=== PATIENT | female | born 1965 | race Caucasian/White ===

== ENCOUNTER → 2018-01-31 | Outpatient (CLI) | payer OTHER | END | disposition home or self-care (01) | LOC: C.LAB 13:31 | PROVIDERS: ATTEND Internal Medicine | DX: R82.90 Unspecified abnormal findings in urine (principal) ==

== ENCOUNTER → 2018-02-17 | Outpatient (CLI) | payer OTHER | END | disposition home or self-care (01) | LOC: C.LAB 11:34 | PROVIDERS: ATTEND Internal Medicine | DX: N39.0 Urinary tract infection, site not specified (principal) ==

== ENCOUNTER 2020-01-16 10:41 | Inpatient (IN) ==
[2020-01-16] MEDS ORDERED: cefTRIAXone SODIUM 1,000 MG/50 ML BAG IV STA (12:04)
[2020-01-16] MEDS ORDERED: SODIUM CHLORIDE 0.9% 1000ML 1,000 ML IV ONE (12:04)
[2020-01-16] MEDS ORDERED: ONDANSETRON INJ 2 MG/ML 2 ML VIAL IV STA (12:04)
[2020-01-16] MEDS ORDERED: MoRPHine SULFATE 4 MG/ML 1 ML CARP\\VIAL IV STA ×2 (12:04→13:46)
[2020-01-16 12:35] LABS: Basophils # (auto) 0.03 K/uL (0-0.2); Basophils % (auto) 0.4 %; Eosinophils # (auto) 0.04 K/uL (0-0.5); Eosinophils % (auto) 0.5 %; Hematocrit (blood only) 40.1 % (37-47); Hemoglobin 13.8 g/dL (12.0-16.0); Immature Granulocytes # (auto) 0.02 K/uL (0.00-0.02); Immature Granulocytes % (auto) 0.2 %; Lymphocytes # (auto) 0.99 K/uL (1.2-3.4); Lymphocytes % (auto) 11.6 %; Mean Corpuscular Hemoglobin 32.4 pg (25-34); Mean Corpuscular Hgb Conc 34.4 g/dL (32-36); Mean Corpuscular Volume 94.1 fL (80-100); Mean Platelet Volume 9.6 fL (7.4-10.4); Monocytes # (auto) 0.54 K/uL (0.11-0.59); Monocytes % (auto) 6.3 %; Neutrophils # (auto) 6.95 K/uL (1.4-6.5); Platelet Count 201 K/uL (130-400); RDW Coefficient of Variation 12.5 % (11.5-14.5); RDW Standard Deviation 42.7 fL (36.4-46.3); Red Blood Count 4.26 M/uL (4.2-5.4); White Blood Count 8.57 K/uL (4.8-10.8)
[2020-01-16 12:41] LABS: Color Urine Orange
[2020-01-16 12:42] LABS: Appearance Urine Clear (Clear); Sulfosalicylic Acid Urine Negative (Negative)
[2020-01-16 12:53] LABS: RBC Urine >30 /hpf (0-4)
[2020-01-16 12:54] LABS: BUN Creatinine Ratio 13.7 (10-20); Bacteria Urine 1+ (Negative); Creatinine Clr Calc Pharmacy 54.7 ml/min; Est GFR (African American) 68.8; Est GFR (Non-African American) 59.3; Potassium 3.9 mmol/L (3.5-5.1)
[2020-01-16 12:57] LABS: Albumin Globulin Ratio 1.2 (0.9-2); Bilirubin,Total 0.5 mg/dl (0.2-1); Globulin 3.3 gm/dl (2.5-4.0); Total Protein 7.3 gm/dl (6.4-8.2)
--- NOTE | 2020-01-16 12:57 | CT Scan Report ---
CT abd pelvis wo con CLINICAL HISTORY: 54 years-old Female presenting with LLQ pain, flank pain. TECHNIQUE: Multidetector CT of the abdomen and pelvis was performed without the use of intravenous co ntrast. IV contrast: None. One or more dose lowering techniques were used consistent with the princip les of ALARA (as low as reasonably achievable), including automatic exposure control, mA or kV adjust ment to individual patient size, and/or use of iterative reconstruction. COMPARISON: None. CT DOSE (mGy.cm): The estimated cumulative dose is 274.92 mGy.cm. FINDINGS: Patient Service Coordinator topogram: Cholecystectomy clips. Lung bases: Normal heart size. No pericardial or pleural effusion. No focal infiltrate or nodule at t he lung bases. Liver: Normal morphology. Normal density. Biliary: No gross biliary ductal dilatation allowing for noncontrast technique. Gallbladder surgicall y absent. Pancreas: Normal noncontrast appearance. Spleen: Normal noncontrast appearance. Adrenal glands: Normal noncontrast appearance. Kidneys and ureters: Moderate left perinephric fat infiltration asymmetric to the right. Mild left pe lvocaliectasis also asymmetric to the right. Left ureter mildly distended. The distal left ureter is poorly visualized. There is an oblong calculus in the general region of the course of the distal left ureter measuring 4 mm. This is suspicious for an obstructing distal left ureteral calculus immediate ly proximal to the left ureterovesical junction. No additional renal or ureteral calculus. Bladder: Incompletely evaluated secondary to underdistention. No bladder calculus. Pelvic organs: Normal noncontrast appearance. Bowel: Fatty atrophy of the appendix. No bowel obstruction. Peritoneal cavity: No free fluid or intraperitoneal gas. Lymph nodes: No gross lymphadenopathy allowing for noncontrast technique. Vasculature: Normal noncontrast appearance. Abdominal wall: Normal. Musculoskeletal: Normal. IMPRESSION: 1. Suspected obstructing 4 mm distal left ureteral calculus immediately proximal to the left UVJ. Ev aluation limited by poor visualization of the distal left ureter. Follow-up is advised. 2. Associated mild left hydroureteronephrosis. Given the ambiguity of the distal left ureteral calcu marlene finding, recommend correlate with urinalysis to exclude infection as a cause for left collecting system dilatation in the appearance of the left kidney. 3. Status post cholecystectomy. ACT 112: Negative or not required by law. Electronically signed by: Aric Phillips M.D. 01/16/2020 12:56 PM
--- NOTE | 2020-01-16 13:36 | Emergency Department Note ---
History of Present Illness General Chief Complaint: Abdominal Pain Stated Complaint: LT ABD PAIN,NAUSEA/VOMITING Source: patient Mode of arrival: ambulatory Limitations: no limitations History of Present Illness Provider Complaint: abdominal pain and flank pain Onset (ago): 1 day(s) Pain Consistency: constant Location: LLQ Radiation: L flank Migration to: no migration Severity: moderate Maximum Pain Intensity: 6 Current Pain Intensity: 6 Quality: + sharp Relieved By: + nothing Exacerbated By: + movement Context: + recent antibiotic use Associated Symptoms: + nausea and + chills This 54-year-old female patient with significant past medical history of chronic urinary tract infections, currently followed by urology and [facility] presents to the emergency department today, ambulatory, complaining of left lower quadrant pain. The patient states she was diagnosed over the phone based on dysuria and urinary frequency with a UTI and started on Macrobid on 12/26. She states her symptoms somewhat improved, but worsened again and on 01/12, she was started on cefadroxil. She states she did have a urinalysis and culture performed here at [facility], but she was not given clear results. She states the cefadroxil seem to be helping somewhat, but this morning, she developed severe left lower quadrant tenderness radiating across her abdomen and up to her left flank. The patient did see [facility] today and had a urinalysis performed. She was told she likely has pyelonephritis and sent to the ED for further evaluation. The patient has reported subjective fevers. She does report nausea and one episode of vomiting when trying to take the Pyridium. She states the dysuria, urinary frequency, and pain have been progressively worsening today. Patient denies any chest pain, dyspnea, headache, dizziness, numbness, tingling, weakness, or other associated symptoms. Home Medications Home Medications Medication Instructions Recorded Confirmed Type aspirin 81 mg PO DAILY 01/16/20 01/16/20 History biotin 1 mg PO DAILY 01/16/20 01/16/20 History cefadroxil 500 mg PO BID 01/16/20 01/16/20 History cholecalciferol (vitamin D3) 1,000 unit PO DAILY 01/16/20 01/16/20 History [Vitamin D3] denosumab [Prolia] 60 mg SUBCUT Q6M 01/16/20 01/16/20 History hydroxychloroquine 200 mg PO DAILY 01/16/20 01/16/20 History letrozole 2.5 mg PO DAILY 01/16/20 01/16/20 History temazepam 15 mg PO HS 01/16/20 01/16/20 History Allergies Allergy/AdvReac Type Severity Reaction Status Date / Time codeine Allergy Hives Unverified 01/16/20 11:27 Sulfa (Sulfonamide AdvReac Headache Unverified 01/16/20 11:27 Antibiotics) Past Med/Surg History Medical History Breast cancer Chronic UTI Lymphedema of right upper extremity Stress fracture of left foot Social History Preferred Language: Swazi Communication Ability: Effective Shingle Weaver Required: No Beliefs That Will Affect Care: None Current Living Situation: Spouse Feels Safe at Home: Yes Smoking Status: Never smoker Second Hand Exposure: No ; Hx Alcohol Use: Yes Alcohol type: other Hx Substance Use: No Review of Systems A total of 10 systems reviewed and were otherwise negative Physical Exam Vital Signs: Vital Signs - 24 hr 01/16/20 11:00 01/16/20 12:19 01/16/20 12:20 Temperature 36.5 C Temperature Source Oral Pulse Rate 67 68 Pulse Rate [Left F nick] 68 Pulse Rate from Sp O2 Sensor 69 Respiratory Rate 18 18 Respiratory Effort / Characteristics Non-Labored Sponta neous Respiratory Depth Normal Normal Blood Pressure 133/85 129/74 Blood Pressure [Le ft Arm] 129/74 Blood Pressure Jodee n 101 85 Blood Pressure Jodee n [Left Arm] 92 Blood Pressure Pos ition Sitting Pulse Oximetry 99 99 97 Oxygen Delivery Me thod Room Air Room Air Room Air Sepsis Recent Feve r Within 48 Hours No Sepsis Action Take n by Nursing No Action Required 01/16/20 13:14 01/16/20 13:15 01/16/20 13:30 Temperature Temperature Source Pulse Rate 66 64 87 Pulse Rate [Left F nick] 66 Pulse Rate from Sp O2 Sensor 67 65 88 Respiratory Rate 22 20 17 Respiratory Effort / Characteristics Non-Labored Sponta neous Respiratory Depth Normal Blood Pressure 111/68 Blood Pressure [Le ft Arm] 111/68 Blood Pressure Jodee n 85 Blood Pressure Jodee n [Left Arm] 82 Blood Pressure Pos ition Pulse Oximetry 99 99 100 Oxygen Delivery Me thod Room Air Sepsis Recent Feve r Within 48 Hours Sepsis Action Take n by Nursing 01/16/20 13:31 01/16/20 14:00 01/16/20 14:01 Temperature Temperature Source Pulse Rate 78 70 68 Pulse Rate [Left F nick] Pulse Rate from Sp O2 Sensor 76 70 68 Respiratory Rate 18 16 17 Respiratory Effort / Characteristics Respiratory Depth Blood Pressure 143/76 H 110/67 Blood Pressure [Le ft Arm] Blood Pressure Jodee n 102 79 Blood Pressure Jodee n [Left Arm] Blood Pressure Pos ition Pulse Oximetry 99 97 97 Oxygen Delivery Me thod Sepsis Recent Feve r Within 48 Hours Sepsis Action Take n by Nursing Physical Exam: VITALS: Vitals are noted on the nurse's note and reviewed by myself. Vital signs stable. GENERAL: This is a 54-year-old white female, in no acute distress, nondiaphoretic, well-developed well-nourished. SKIN: The skin was without rashes, erythema, edema, or bruising. There is no tenting of the skin. Capillary refill less than 2 seconds. HEAD: Normocephalic atraumatic. NECK: Supple without nuchal rigidity. No lymphadenopathy. HEART: Regular rate and rhythm without murmurs gallops or rubs. LUNGS: Clear to auscultation bilaterally without wheezes, rales or rhonchi. No retractions or accessory muscle use. ABDOMEN: Positive bowel sounds x 4. Normal tympanic percussion. Left lower quadrant tenderness to palpation. There is left CVA tenderness. Abdomen is otherwise soft, nontender, without masses or organomegaly. Rucker sign negative. No guarding or rebound tenderness. MUSCULOSKELETAL: No muscle atrophy, erythema, or edema noted. Full range of motion without joint tenderness in all extremities. No tenderness to palpation. Normal gait. Strength 5/5 throughout. NEURO: Patient was alert and oriented to person place and time. No focal neurological deficits. Course Course The patient was seen and evaluated as above. Pt. placed on continuous color television console monitor which showed a normal sinus rhythm at a rate of 73. IV access obtained, labs drawn. Patient medicated with IV fluids, Rocephin, Zofran, and morphine. Imaging performed and reviewed by myself and radiologist as above. Labs reviewed by myself. I discussed the findings with the patient at bedside. I discussed the case with Dr. Bueno. I discussed the case with the respiratory manager. I discussed case with Dr. Hector, [facility] hospitalist. Please see her dictation regarding ongoing management care of this patient. Consultations Consultation #1: Dr. Bueno: Recommends making the patient n.p.o., starting Rocephin, and admit to the hospitalist service. He advised that if the patient develops a fever of greater than 100 F, he should be contacted immediately to emergently place a stent. The patient will otherwise have a stent placed tonight or tomorrow morning. Time: 13:35 Administered Medications Discontinued Medications Sodium Chloride (Nss 1000ml) 1,000 mls @ 999 mls/hr IV .Q1H1M ONE Stop: 01/16/20 13:04 Last Infusion: 01/16/20 13:49 Dose: 0 mls/hr Documented by: [id number] Admin: 01/16/20 12:31 Dose: 999 mls/hr Documented by: [id number] Ceftriaxone Sodium (Rocephin) 1,000 mg in 50 mls @ 100 mls/hr IV NOW STA Stop: 01/16/20 12:33 Last Infusion: 01/16/20 13:02 Dose: 0 mls/hr Documented by: [id number] Admin: 01/16/20 12:32 Dose: 100 mls/hr Documented by: [id number] Morphine Sulfate (Morphine Sulfate) 4 mg IV NOW STA Stop: 01/16/20 12:05 Last Admin: 01/16/20 12:31 Dose: 4 mg Documented by: [id number] Morphine Sulfate (Morphine Sulfate) 4 mg IV NOW STA Stop: 01/16/20 13:47 Last Admin: 01/16/20 13:53 Dose: 4 mg Documented by: [id number] Ondansetron HCl (Zofran) 4 mg IV NOW STA Stop: 01/16/20 12:05 Last Admin: 01/16/20 12:32 Dose: 4 mg Documented by: [id number] Medical Decision Making Differential Diagnosis + peptic ulcer disease, + biliary pathology, + UTI, + obstruction, + mesenteric ischemia, + aortic pathology, + infections, + inflammatory bowel disease, + renal colic, + ectopic (female), + ovarian torsion (female), + tubo- ovarian abscesses (female), + pelvic inflammatory disease (female), + abdominal pain, + appendicitis, + calculus of kidney, + constipation, + diverticulitis, + endometriosis, + gastroenteritis, + pancreatitis and + small bowel obstruction Home Medications Current Medication List: was personally reviewed by me Laboratory Data Attestation: I reviewed the patient's lab results. No leukocytosis, anemia, thrombocytopenia. Renal, hepatic function, and electrolytes without significant abnormality. Urinalysis difficult to interpret due to discoloration, however shows greater than 30 red blood cells, 5-10 white blood cells, 10-20 epithelial cells, 1+ bacteria. Lipase normal. Result diagrams: 01/16/20 12:25 01/16/20 12:25 Lab Results 01/16/20 01/16/20 01/16/20 Range/Units 12:25 12:25 12:25 WBC 8.57 (4.8-10.8) K/uL RBC 4.26 (4.2-5.4) M/uL Hgb 13.8 (12.0-16.0) g/dL Hct 40.1 (37-47) % MCV 94.1 (80-100) fL MCH 32.4 (25-34) pg MCHC 34.4 (32-36) g/dL RDW Std Deviation 42.7 (36.4-46.3) fL RDW Coeff of Jesús 12.5 (11.5-14.5) % Plt Count 201 (130-400) K/uL MPV 9.6 (7.4-10.4) fL Immature Gran % (Auto) 0.2 % Neut % (Auto) 81.0 % Lymph % (Auto) 11.6 % [place] % (Auto) 6.3 % Eos % (Auto) 0.5 % Baso % (Auto) 0.4 % Immature Gran # (Auto) 0.02 (0.00-0.02) K/uL Neut # (Auto) 6.95 H (1.4-6.5) K/uL Lymph # (Auto) 0.99 L (1.2-3.4) K/uL [place] # (Auto) 0.54 (0.11-0.59) K/uL Eos # (Auto) 0.04 (0-0.5) K/uL Baso # (Auto) 0.03 (0-0.2) K/uL Sodium 138 (136-145) mmol/L Potassium 3.9 (3.5-5.1) mmol/L Chloride 108 H (98-107) mmol/L Carbon Dioxide 25 (21-32) mmol/L Anion Gap 5.0 (3-11) BUN 14 (7-18) mg/dl Creatinine 1.05 (0.6-1.2) mg/dl Est Cr Clr Drug Dosing 54.7 ml/min Est GFR ( Amer) 68.8 Est GFR (Non-Af Amer) 59.3 BUN/Creatinine Ratio 13.7 (10-20) Glucose 97 (70-99) mg/dl Calcium 9.0 (8.5-10.1) mg/dl Total Bilirubin 0.5 (0.2-1) mg/dl AST 17 (15-37) U/L ALT 20 (12-78) U/L Alkaline Phosphatase 52 (45-117) U/L Total Protein 7.3 (6.4-8.2) gm/dl Albumin 4.0 (3.4-5.0) gm/dl Globulin 3.3 (2.5-4.0) gm/dl Albumin/Globulin Ratio 1.2 (0.9-2) Lipase 172 (73-393) U/L Urine Color [place] Urine Appearance Clear (Clear) Urine pH (4.5-7.5) Ur Specific [place] 1.020 (1.000-1.060) Urine Protein (Negative) Urine Glucose (UA) (Negative) Urine Ketones (Negative) Urine Blood (Negative) Urine Nitrite (Negative) Urine Bilirubin (Negative) Urine Urobilinogen (Negative) Ur Leukocyte Esterase (Negative) Urine RBC >30 H (0-4) /hpf Urine WBC 5-10 H (0-5) /hpf Ur Epithelial Cells 10-20 H (0-5) /lpf Urine Bacteria 1+ H (Negative) Imaging Data Radiologist's Impression: CT abd pelvis wo con CLINICAL HISTORY: 54 years-old Female presenting with LLQ pain, flank pain. TECHNIQUE: Multidetector CT of the abdomen and pelvis was performed without the use of intravenous contrast. IV contrast: None. One or more dose lowering techniques were used consistent with the principles of ALARA (as low as reasonably achievable), including automatic exposure control, mA or kV adjustment to individual patient size, and/or use of iterative reconstruction. COMPARISON: None. CT DOSE (mGy.cm): The estimated cumulative dose is 274.92 mGy.cm. FINDINGS: Coating Machine Operator Helper topogram: Cholecystectomy clips. Lung bases: Normal heart size. No pericardial or pleural effusion. No focal infiltrate or nodule at the lung bases. Liver: Normal morphology. Normal density. Biliary: No gross biliary ductal dilatation allowing for noncontrast technique. Gallbladder surgically absent. Pancreas: Normal noncontrast appearance. Spleen: Normal noncontrast appearance. Adrenal glands: Normal noncontrast appearance. Kidneys and ureters: Moderate left perinephric fat infiltration asymmetric to the right. Mild left pelvocaliectasis also asymmetric to the right. Left ureter mildly distended. The distal left ureter is poorly visualized. There is an oblong calculus in the general region of the course of the distal left ureter measuring 4 mm. This is suspicious for an obstructing distal left ureteral calculus immediately proximal to the left ureterovesical junction. No additional renal or ureteral calculus. Bladder: Incompletely evaluated secondary to underdistention. No bladder calculus. Pelvic organs: Normal noncontrast appearance. Bowel: Fatty atrophy of the appendix. No bowel obstruction. Peritoneal cavity: No free fluid or intraperitoneal gas. Lymph nodes: No gross lymphadenopathy allowing for noncontrast technique. Vasculature: Normal noncontrast appearance. Abdominal wall: Normal. Musculoskeletal: Normal. IMPRESSION: 1. Suspected obstructing 4 mm distal left ureteral calculus immediately proximal to the left UVJ. Evaluation limited by poor visualization of the distal left ureter. Follow-up is advised. 2. Associated mild left hydroureteronephrosis. Given the ambiguity of the distal left ureteral calculus finding, recommend correlate with urinalysis to exclude infection as a cause for left collecting system dilatation in the appearance of the left kidney. 3. Status post cholecystectomy. ACT 112: Negative or not required by law. Electronically signed by: Aric Phillips M.D. 01/16/2020 12:56 PM Blood Pressure Blood Pressure Findings: Normal blood pressure MDM Narrative This 54-year-old female patient presents emergency department today due to sudden onset of left lower quadrant abdominal pain radiating to the flank in the setting of urinary tract infection. The patient has now been on 2 different antibiotics. She is afebrile with no leukocytosis, however does report subjective chills and increased pain, dysuria, and urinary frequency. Work-up here in the ED does show a white blood cells and red blood cells as well as bacteria in the urine. There is a left hydroureteronephrosis, distal left ureteral calculus, as well as left collecting system dilatation noted on CT imaging. Given the findings and symptoms, I am suspicious for a pyelonephritis in the setting of a ureteral stone. I recommend admission with urology consult for further evaluation and management. The patient was medicated with IV antibiotics and will remain n.p.o. until she is seen and evaluated by urology. The chart was completed utilizing [employer] Speech voice recognition software. Grammatical errors, random word insertions, pronoun errors, and incomplete sentences are an occasional consequence of this system due to software limitations, ambient noise, and hardware issues. Any formal questions or concerns about the content, text, or information contained within the body of this dictation should be directly addressed to the provider for clarification. Impression & Plan Nephrolithiasis, Pyelonephritis, Abdominal pain Discharge Plan Visit Data *Final* Discharge Date/Time: 01/16/20 15:23 Chief Complaint: Abdominal Pain Stated Complaint: LT ABD PAIN,NAUSEA/VOMITING ED Provider: Aashish Rainey ED Midlevel Provider: Peggy Muñoz Discharge Problem: Nephrolithiasis, Pyelonephritis, Abdominal pain Patient Disposition: Admitted As Inpatient Condition: Good Discharge Instructions Interventions: ED Discharge Assessment Last Done: 01/16/20 15:23
--- NOTE | 2020-01-16 14:03 | History & Physical Report ---
Date of Service January 16, 2020 Assessment & Plan (1) Nephrolithiasis: Admits to [facility] on telemetry, Vital signs every 4 hours, Consult urology, Call urology if patient spikes fever above 100.4 F Keep n.p.o. DVT prophylaxis SCD and teds Continue IV fluid hydration Full code Present on Admission?: Yes (2) Pyelonephritis: As discussed above, Urine culture, blood culture pending, Started on ceftriaxone in the ER and continue empirically ceftriaxone 2 g IV daily. Pain management Antinausea management Present on Admission?: Yes (3) History of breast cancer: Stable now. Patient had a lumpectomy at [facility] in 2014 Patient completed chemo and radiation therapy in 2016 Patient is in remission from a left breast cancer. Present on Admission?: Yes History of Present Illness Chief Complaint: Left flank pain Primary Care Provider: Lincoln Neely The patient is a 54 years old female with past medical history of right breast carcinoma s/p lumpectomy, chemo and radiation therapy, lupus on hydrochloroquine who presents to the emergency room with a complaint of left flank pain. Patient states that on December 26 she contacted her doctor urologist from [place] for dysuria and urinary frequency over the phone and she was diagnosed UTI. Patient was started on Macrobid and initially her symptoms improved but then started to worsen again on January 12. At that point patient was started on cefadroxil. Initially cefadroxil was helping somewhat but then the symptoms were worsening and she developed severe left lower quadrant tenderness radiating across her abdomen after her left flank. Patient went to urgent care where she had urine analysis and she was told that she has pyelonephritis and she was sent to the emergency room for further evaluation and treatment. Patient reports subjective fevers but did not measure, denies headache, chest pain, shortness of breath, hemoptysis, hematuria, dysuria, melena, syncope or near syncope. Labs are reviewed which shows WBCs 8.57, hemoglobin 13.8, hematocrit 40.1, platelets 201, sodium 138, potassium 3.9, chloride 108, carbon dioxide 25, anion gap 5, BUN 14, creatinine 1.05, GFR 59.3, BUN 13.7, calcium 9, total bilirubin 0.5, AST 17, ALT 20, alkaline phosphatase 52, total protein 7.3, albumin 4, globulin 3.3, lipase 172, urine positive for RBCs, WBCs 5-10, epithelial cells 10-20, and urine bacteria 1+. The abdomen and pelvis: Suspected obstructing 4 mm distal left ureteral calculus immediately proximal to the left UV J. Evaluation limited by poor visualization of the left ureter. Associated with mild left hydro- ureteronephrosis. Given the ambiguity of the distal left ureteral calculus finding recommended correlate with urine analysis to exclude infection as a cause for the left collecting system dilatation in the parents of the left kidney. Status post cholecystectomy. Decision was made to admit patient to [facility] on telemetry for pyelonephritis and nephrolithiasis. Allergies Allergy/AdvReac Type Severity Reaction Status Date / Time codeine Allergy Hives Unverified 01/16/20 11:27 Sulfa (Sulfonamide AdvReac Headache Unverified 01/16/20 11:27 Antibiotics) Home Medications Home Medications Medication Instructions Recorded Confirmed Type aspirin 81 mg PO DAILY 01/16/20 01/16/20 History biotin 1 mg PO DAILY 01/16/20 01/16/20 History cefadroxil 500 mg PO BID 01/16/20 01/16/20 History cholecalciferol (vitamin D3) 1,000 unit PO DAILY 01/16/20 01/16/20 History [Vitamin D3] denosumab [Prolia] 60 mg SUBCUT Q6M 01/16/20 01/16/20 History hydroxychloroquine 200 mg PO DAILY 01/16/20 01/16/20 History letrozole 2.5 mg PO DAILY 01/16/20 01/16/20 History temazepam 15 mg PO HS 01/16/20 01/16/20 History Past Med/Surg History Medical History Breast cancer Chronic UTI Lymphedema of right upper extremity Stress fracture of left foot Social History Preferred Language: [place] Timorese Communication Ability: Effective Garment Manufacturer Required: No Beliefs That Will Affect Care: None Current Living Situation: Spouse Other Information That Helps Us Care for You: No Feels Safe at Home: Yes Safety Concerns: Feels Safe At This Time Smoking Status: Never smoker Do You Dip or Chew Tobacco: No ; Second Hand Exposure: No ; Tobacco Cessation Education Requested by Patient: No Hx Alcohol Use: Yes Alcohol type: other Hx Substance Use: No Review of Systems Review of Systems: All systems reviewed & are unremarkable except as noted in HPI & below Physical Exam Constitutional: WD/WN, vitals as above well developed and + ill appearing Eyes: PERRL, conjunctivae normal, anicteric sclerae ENMT: external ear and nose normal, oropharynx normal Neck: trachea midline, no thyromegaly Respiratory: normal respiratory effort, lungs clear to auscultation Cardiovascular: RRR, no murmur, no edema Gastrointestinal (Abdomen): normal bowel sounds, soft, nontender, no hepatosplenomegaly Musculoskeletal: no cyanosis or clubbing, extremities motor strength 5/5 Skin: no rashes, warm and dry Neurologic: patellar DTR's 2+ bilat, sensation intact Psychiatric: A+Ox3, euthymic affect Lymphatic: no cervical or axillary lymphadenopathy Results & Data Vital Signs (Past 12 Hours) Vital Signs Temp Pulse Pulse Resp BP BP Pulse Ox 01/16/20 13:15 66 18 111/68 99 01/16/20 12:20 97 01/16/20 12:19 68 18 129/74 99 01/16/20 11:00 36.5 C 67 18 133/85 99 Code Status & VTE Plan Code Status Full code VTE Prophylaxis Plan VTE Prophylaxis will be ordered: Yes PG Care Time/CCT Total # of Minutes Spent Total Time Spent with Patient: Total time spent is greater than 50% in coordination of care (as documented) at patient's floor/unit and/or counseling patient: Coding Level of Care Code 05256 Initial Inpt Care Lvl 3 Diagnoses Nephrolithiasis N20.0 Pyelonephritis N12 History of breast cancer Z85.3
[2020-01-16] MEDS ORDERED: MAGNESIUM HYDROXIDE SUSP 30 ML UDC PO PRN (15:40)
[2020-01-16] MEDS ORDERED: ONDANSETRON INJ 2 MG/ML 2 ML VIAL IV PRN (15:40)
[2020-01-16] MEDS ORDERED: MoRPHine SULFATE 4 MG/ML 1 ML CARP\\VIAL IV PRN (15:40)
[2020-01-16] MEDS ORDERED: ALUMINUM/MAGNESIUM SUSP 30 ML UDC PO PRN (15:40)
[2020-01-16] MEDS ORDERED: ACETAMINOPHEN 325 MG TAB PO PRN (15:40)
[2020-01-16] MEDS ORDERED: POLYETHYLENE (MIRALAX) 17 GM PACK PO PRN (15:40)
[2020-01-16] MEDS: NSS + 20MEQ KCL 20 MEQ/1,000 ML BAG IV SCH (16:22)
[2020-01-16] MEDS: TEMAZEPAM 15 MG CAPSULE PO SCH (21:17)
--- NOTE | 2020-01-17 04:27 | Consultation Report ---
DATE OF CONSULTATION: 01/16/2020 REASON FOR THE CONSULT: Left-sided abdominal pain and kidney stone. HISTORY OF PRESENTATION: The patient is a 54-year-old female who has a past medical history of chronic urinary tract infections who had been seen by urology in [place] in the past several years ago who presents to the Emergency Department in [place] today with severe left lower quadrant pain. The patient had been having some left lower quadrant irritation and symptoms of urgency and as if she had a bladder infection for the past several weeks. It was accompanied with a low grade left lower quadrant pain to some extent, but she was treated once with Macrobid without a culture, the second time with a culture which is not clear that grew anything out, but 3 different organisms and felt that she had urinary tract infection. She was treated with a second time with cefadroxil. The patient awoke today with severe left-sided pain, came to the Emergency Room and had a CAT scan which shows what appears to be a left distal ureteral stone. The radiologist is not 100% certain, but it certainly is consistent with the stone and her symptoms are also consistent with the stone. PAST MEDICAL HISTORY: Significant for history of breast cancer with lumpectomy and node dissection. She has a history of cholecystectomy. ALLERGIES: SHE HAS AN ALLERGY TO SULFA AND CODEINE. MEDICATIONS: Include aspirin, biotin, vitamin D3, Prolia 60 mg subcutaneous every 6 months, hydroxychloroquine, Plaquenil 200 mg daily, temazepam 15 mg at bedtime and letrozole 2.5 mg p.o. daily. She also has a past medical history of lupus for over 20 years REVIEW OF SYSTEMS: Total 10 systems were reviewed and were otherwise negative. SOCIAL HISTORY: The patient drinks, but rarely. She never smoked. Denies substance abuse. PHYSICAL EXAMINATION: HEENT: Within normal limits. LUNGS: Clear to auscultation. No respiratory distress. NECK: Supple without rigidity. HEART: Without pedal edema. ABDOMEN: Soft, except for some tenderness in the left lower quadrant and some left CVA tenderness to percussion. EXTREMITIES: Unremarkable without abnormality or weakness. NEUROLOGIC: The patient is alert and oriented without focal or sensory deficit. ASSESSMENT: Symptoms of left ureteral calculus for several weeks with increasing severity today. Discussed the option of left ureteroscopy if the pain persists overnight and discussed the risks including inability to remove the stone, damage to the ureter including pushing the stone into the bladder wall, need for reoperation or repeat operation. Also, discussed the options which include passage or ESWL if the stone can be seen. The patient understands the options and the risks and benefits and wishes to proceed with ureteroscopy in the morning if the pain persists.
[2020-01-17] MEDS: NSS + 20MEQ KCL 20 MEQ/1,000 ML BAG IV SCH (05:30)
[2020-01-17 06:51] LABS: Basophils # (auto) 0.05 K/uL (0-0.2); Basophils % (auto) 0.9 %; Eosinophils # (auto) 0.12 K/uL (0-0.5); Eosinophils % (auto) 2.1 %; Hematocrit (blood only) 36.6 % (37-47); Hemoglobin 12.2 g/dL (12.0-16.0); Immature Granulocytes # (auto) 0.01 K/uL (0.00-0.02); Immature Granulocytes % (auto) 0.2 %; Lymphocytes # (auto) 1.42 K/uL (1.2-3.4); Mean Corpuscular Hemoglobin 31.8 pg (25-34); Mean Corpuscular Hgb Conc 33.3 g/dL (32-36); Mean Corpuscular Volume 95.3 fL (80-100); Mean Platelet Volume 9.6 fL (7.4-10.4); Monocytes # (auto) 0.56 K/uL (0.11-0.59); Monocytes % (auto) 9.8 %; Neutrophils # (auto) 3.53 K/uL (1.4-6.5); Platelet Count 175 K/uL (130-400); RDW Coefficient of Variation 12.7 % (11.5-14.5); RDW Standard Deviation 44.5 fL (36.4-46.3); Red Blood Count 3.84 M/uL (4.2-5.4); White Blood Count 5.69 K/uL (4.8-10.8)
[2020-01-17 07:29] LABS: BUN Creatinine Ratio 13.4 (10-20); Creatinine Clr Calc Pharmacy 75.5 ml/min; Est GFR (African American) 101.6; Est GFR (Non-African American) 87.7; Potassium 4.1 mmol/L (3.5-5.1)
[2020-01-17 07:33] LABS: Bilirubin,Total 0.3 mg/dl (0.2-1); Globulin 2.9 gm/dl (2.5-4.0); Total Protein 5.9 gm/dl (6.4-8.2)
[2020-01-17] MEDS ORDERED: NON-FORMULARY MEDICATION (Biotin 1 MG) PO SCH (09:00)
--- NOTE | 2020-01-17 09:05 | XRay Report ---
[facility] HISTORY: ureteral stone COMPARISON: Abdomen and pelvis CT 01/16/2020. FINDINGS: The bowel gas pattern is unremarkable. There are no dilated loops of small bowel to suggest an obstruction. Prior cholecystectomy. No renal calculi. There are few indeterminate punctate calci fications within the pelvis. These favor phleboliths. However, one of the left pelvic calcifications could represent a ureteral stone. These remain unchanged. No pneumoperitoneum or pneumatosis. IMPRESSION: There are few indeterminate punctate calcifications within the lower pelvis. These favor phleboliths. However, one of the left pelvic calcifications could represent a ureteral stone. These remain unchan ged. ACT 112: Negative or not required by law. Electronically signed by: Danny Jack M.D. 01/17/2020 9:03 AM
[2020-01-17] MEDS ORDERED: OPTIRAY 300 IV PRN (10:53)
--- NOTE | 2020-01-17 11:58 | Anesthesiology Consultation ---
Date of Service January 17, 2020 Assessment & Plan Chart Review Chart Review: Acceptable Risk for Surgery and Patient NOT seen in Pre Admission Testing Consults Requested none ASA [id number] Proposed Anesthesia Anesthesia Type: General History Surgery Operation Date: 01/17/20 13:00 Proposed Procedures p Cystoscopy(Left) - Oli Bueno MD Height/Weight Height: 5 ft 3 in Weight: 66.1 kg Allergies Allergy/AdvReac Type Severity Reaction Status Date / Time codeine Allergy Hives Unverified 01/16/20 11:27 Sulfa (Sulfonamide AdvReac Headache Unverified 01/16/20 11:27 Antibiotics) Medications Home Medications Medication Instructions Recorded Confirmed Last Taken aspirin 81 mg PO DAILY 01/16/20 01/16/20 Unknown biotin 1 mg PO DAILY 01/16/20 01/16/20 Unknown cefadroxil 500 mg PO BID 01/16/20 01/16/20 Unknown cholecalciferol (vitamin D3) 1,000 unit PO DAILY 01/16/20 01/16/20 Unknown [Vitamin D3] denosumab [Prolia] 60 mg SUBCUT Q6M 01/16/20 01/16/20 Unknown hydroxychloroquine 200 mg PO DAILY 01/16/20 01/16/20 Unknown letrozole 2.5 mg PO DAILY 01/16/20 01/16/20 Unknown temazepam 15 mg PO HS 01/16/20 01/16/20 Unknown Active Medications Generic Name Dose Route Start Last Admin Trade Name Freq PRN Reason Stop Dose Admin Acetaminophen 650 mg 01/16/20 15:40 01/16/20 18:09 Tylenol PO 02/15/20 15:39 650 mg Q4H PRN Administration pain/fever Ioversol 100 ml 01/17/20 10:53 01/17/20 10:54 Optiray 300 IV 01/21/20 10:52 100 ml ONCE PRN Administration Interaction Checking Ondansetron HCl 4 mg 01/16/20 15:40 01/16/20 21:09 Zofran IV 02/15/20 15:39 4 mg Q6H PRN Administration Nausea Temazepam 15 mg 01/16/20 21:00 01/16/20 21:17 Restoril PO 02/15/20 20:59 Not Given HS CHEPE NPO Date Last Intake of Fluids: 01/16/20 Time Last Intake of Fluids: 23:59 Last Intake of Fluids Comment: No pills this AM Date Last Intake of Solids: 01/16/20 Time Last Intake of Solids: 21:00 Past Medical History Medical History Breast cancer Chronic UTI Lymphedema of right upper extremity Stress fracture of left foot Exercise / Class Metabolic Activity II 4-5 Yardwork/Stairs/Walk up hill Past Anesthesia History No Hx of Anesthesia Complications and No Family Hx of Anesthesia Complications History of PONV No Hx of PONV and No Hx of Motion Sickness Social History Smoking Status: Never smoker Do You Dip or Chew Tobacco: No Hx Alcohol Use: Yes Alcohol type: other alcohol intake frequency: other Alcohol Intake Frequency Comment: 1 a month Hx Substance Use: No substance use type: does not use Physical Exam Vital Signs Last Vital Signs Temp 37.2 C 01/17/20 08:05 Pulse 65 01/17/20 08:05 Resp 18 01/17/20 08:05 BP 109/70 01/17/20 08:05 Pulse Ox 96 01/17/20 08:05 Testing Laboratory Results 01/17/20 06:36 01/17/20 06:36 Urine Color [place] 01/16/20 12:25 Urine Appearance Clear (Clear) 01/16/20 12:25 Urine pH (4.5-7.5) 01/16/20 12:25 Ur Specific [place] 1.020 (1.000-1.060) 01/16/20 12:25 Urine Protein (Negative) 01/16/20 12:25 Urine Glucose (UA) (Negative) 01/16/20 12:25 Urine Ketones (Negative) 01/16/20 12:25 Urine Nitrite (Negative) 01/16/20 12:25 Ur Leukocyte Esterase (Negative) 01/16/20 12:25 Urine RBC >30 /hpf (0-4) H 01/16/20 12:25 Urine WBC 5-10 /hpf (0-5) H 01/16/20 12:25 Ur Epithelial Cells 10-20 /lpf (0-5) H 01/16/20 12:25 01/16/20 12:25 Urine Culture - Preliminary Urine,Clean Catch No growth - Less than 1,000 colonies/mL, Final report to follow. Electrocardiogram Date: 01/16/20 Findings: + SB @ (at 57; ? age poss. lat infarct)
[2020-01-17] MEDS ORDERED: cefTRIAXone SODIUM 2,000 MG in DEXTROSE 5% 50 ML IV SCH (12:00)
--- NOTE | 2020-01-17 12:05 | XRay Report ---
XR IVP wo/w tomograms CLINICAL HISTORY: assess for distal left stone. Abnormal CT. COMPARISON STUDY: Abdomen and pelvis CT 01/16/2020. FINDINGS: Apple Thinner images demonstrate multiple punctate calcifications again noted within the deep pelvi s most pronounced on the left. No definite renal calculi. Following intravenous demonstration of con trast there is prompt and symmetric perfusion of the kidneys. There is mild fullness within the left renal collecting system and left ureter without carlos hydronephrosis. No right-sided hydronephrosis. No suspicious filling defects identified within the renal collecting systems are ureters. No right ur eteral calculi. Multiple clustered stones within the left deep pelvis favor phleboliths. There is a p ossible punctate stone within the distal left ureter best seen on the post void images. This measures approximately 3 mm. Small post void residual. IMPRESSION: Questionable 3 mm stone within the distal left ureter versus an overlying phlebolith. Th ere is mild fullness within the left renal collecting system and left ureter without carlos hydronephr osis. ACT 112: Negative or not required by law. Electronically signed by: Danny Jack M.D. 01/17/2020 11:58 AM
[2020-01-17] MEDS ORDERED: FLUMAZENIL 0.1 MG/1 ML 10 ML VIAL IV PRN (13:24)
[2020-01-17] MEDS ORDERED: LABETALOL HCL IV 5 MG/ML 20ML IV PRN (13:24)
[2020-01-17] MEDS ORDERED: fentaNYL citrate 100 MCG/2 ML VIAL IV PRN (13:24)
[2020-01-17] MEDS ORDERED: ATROPINE SULFATE 0.1 MG/ML 10ML SYR IV PRN (13:24)
[2020-01-17] MEDS ORDERED: NALOXONE HCL 0.4 MG/1 ML VIAL/CARP IV PRN (13:24)
[2020-01-17] MEDS ORDERED: ePHEDrine sulfate 50 MG/ML AMP IV PRN (13:24)
[2020-01-17] MEDS ORDERED: IOTHALAMATE MEGLUMINE II 17.2% 250 ML VIAL ONE (13:33)
[2020-01-17] MEDS ORDERED: fentaNYL citrate 100 MCG/2 ML VIAL ONE (13:37)
[2020-01-17] MEDS ORDERED: MIDAZOLAM HCL 1 MG/ML 2ML VIAL ONE (13:37)
--- NOTE | 2020-01-17 14:06 | Urology Progress Note ---
Date of Service January 17, 2020 Assessment & Plan (1) Left ureteral stone: left ureteroscopy Subjective pt with less pain but sore on left side and still with irritated bladder Obtained IVP which suggested distal stone . That with symptoms prompted pt to w ant to proceed with left ureteroscopy . Procedure ,risks and options explained to patient and . All questions answered prior to ivp explained ct was inconclusive although suggestive of stone Results & Data Vital Signs (Past 12 Hours) Vital Signs Temp Pulse Resp BP Pulse Ox 01/17/20 08:05 37.2 C 65 18 109/70 96 PG Care Time/CCT Total # of Minutes Spent Total Time Spent with Patient: Total time spent is greater than 50% in coordination of care (as documented) at patient's floor/unit and/or counseling patient: 45 minutes Coding Level of Care Code 65213 Subseq Hosp Care Lvl 3 Diagnoses Left ureteral stone N20.1
[2020-01-17] MEDS ORDERED: LIDOCAINE HCL 2% 2 ML VIAL/AMP(20MG/ML) INFIL ONE (14:20)
[2020-01-17] MEDS ORDERED: ePHEDrine sulfate 50 MG/ML SYR ONE (14:20)
[2020-01-17] MEDS ORDERED: DEXAMETHASONE SOD INJ 4 MG/ML VIAL ONE (14:20)
[2020-01-17] MEDS ORDERED: ONDANSETRON INJ 2 MG/ML 2 ML VIAL ONE (14:20)
[2020-01-17] MEDS ORDERED: PROPOFOL IV EMULSION 10 MG/ML 20 ML VIAL IV ONE (14:20)
--- NOTE | 2020-01-17 15:03 | Post Operative Brief Note ---
PG Immediate Post Op with CF Date of Surgery January 17, 2020 Pre & Post Diagnosis Operation Date: 01/17/20 13:00 Pre-Op Diagnosis: PYELONEPHRITIS, NEPHROLITHIASIS Post-Op Diagnosis: PYELONEPHRITIS, NEPHROLITHIASIS I identified the patient and participated in the time-out.: Yes Procedure Operation Date: 01/17/20 13:00 Actual Procedures p Cystoscopy, Left ureteroscopy, laser lithotripsy, stone removal, and Left stent placement(Left) - Oli Bueno MD Surgeon Oli Bueno MD National [employer] Consultant none Estimated Blood Loss 5 Findings Consistent with Post-Op Diagnosis Specimens Specimen Description: Permanent Specimen: A: Left Ureteral Calculi for chemical analysis
--- NOTE | 2020-01-17 15:26 | Fluoroscopy Report ---
INTRAOPERATIVE RADIOGRAPHS CLINICAL HISTORY: Left-sided laser lithotripsy and ureteral stent placement. Fluoroscopy time: 24 seconds. FINDINGS: 4 spot fluoroscopic views of the left abdomen from a left-sided lithotripsy and ureteral st ent placement are correlated with abdominal CT dated 01/16/2020. The initial image shows a catheter pro jecting over the bladder. There is cannulation of the left ureter. A lithotripsy device is advanced. The final 2 images show the proximal and distal ends of a left ureteral stent in place. IMPRESSION: Intraoperative images from a left sided laser lithotripsy and ureteral stent placement pr ocedure as above. Electronically signed by: Juan Avelar M.D. 01/17/2020 3:25 PM
--- NOTE | 2020-01-17 15:38 | Anesthesiology Progress Note ---
Date of Service January 17, 2020 Anesthesia Post Procedure Vital Signs Vital Signs: Temp Pulse Pulse Pulse Resp BP BP 01/17/20 15:30 78 15 127/68 01/17/20 15:20 76 15 131/72 01/17/20 15:10 87 20 134/75 01/17/20 15:02 36.5 C 99 H 18 130/79 01/17/20 08:05 37.2 C 65 18 01/16/20 23:07 37.0 C 62 18 94/55 L 01/16/20 16:42 36.9 C 80 18 129/80 01/16/20 15:01 73 18 105/62 01/16/20 15:00 68 20 BP Pulse Ox 01/17/20 15:30 95 01/17/20 15:20 97 01/17/20 15:10 98 01/17/20 15:02 97 01/17/20 08:05 109/70 96 01/16/20 23:07 94 01/16/20 16:42 97 01/16/20 15:01 94 01/16/20 15:00 96 Pain Intensity Left Abdomen: Pain Intensity: 2 Transfer of Care Handoff Completed per policy Notes Mental Status: alert / awake / arousable Patient Amnestic to Procedure: Yes Nausea / Vomiting: adequately controlled Pain: adequately controlled Airway Patency, RR, SpO2: stable & adequate BP & HR: stable & adequate Hydration State: stable & adequate Anesthetic Complications: no major complications apparent
--- NOTE | 2020-01-17 15:38 | Operative Report (OR) ---
DATE OF OPERATION: 01/17/2020 PREOPERATIVE DIAGNOSIS: Left ureteral stone. POSTOPERATIVE DIAGNOSES: Left ureteral stone, left ureteral stricture. PROCEDURES PERFORMED: Cystoscopy, left ureteral balloon dilation of stricture, laser lithotripsy of stone, left stent placement. SURGEON: Oli Bueno MD. ANESTHESIA: General. INDICATIONS: The patient is a 54-year-old female with stone like symptoms of bladder irritation with no previous stones who presented with severe flank pain yesterday. She had a CAT scan that was suggestive of hydronephrosis and possibly a stone in the distal ureter, but there were phleboliths and the stone was not clearly in her ureter, near the bladder. Because of this and because her symptoms resolved mostly overnight, an IVP was performed which did not show significant obstruction, but did suggest on several of the last films with the bladder empty, the stone in the ureter. Because of this and her symptoms, the patient wished to proceed with ureteroscopy which we did. DESCRIPTION OF THE PROCEDURE: The patient was taken to the cystoscopy suite. After getting preoperative antibiotics and having Venodyne stockings placed, she was given general anesthesia. Cystoscope was placed in the bladder. On fluoroscopy, some residual contrast could be seen going down to the distal ureter suggestive of a stone. This was only on the left side. A Dual-Flex guidewire was passed into the left renal pelvis. An attempt was made to pass the ureteroscope next to the wire, but I could not advance it through the orifice. Because of this, I balloon dilated the very distal ureter and it was very difficult to see the stone on fluoroscopy as it had been previously, so I did not want to push the stone into the bladder wall with balloon dilation. Because of this, I did balloon dilate the distal 6-7 mm of the ureter, but there was still an area above this after I reattempted to pass the ureteroscope, so I had to replace the cystoscope and reapplied the balloon dilator further up. After this, there was clearly some slight tear in the ureteral wall but I could not see fat, but at this point, I was able to pass the ureteroscope up to a 3-4 mm stone. Using dusting, I was able to fragment the stone into very small pieces. I did grasp 2 of the smaller pieces and several of the smaller pieces that went into the bladder. At the end of the procedure, there were only tiny pieces left that I could see in the ureter. I did place a wire again grasping several of the small pieces with a 3-prong grasper and then leaving the safety wire in place as I removed the ureteroscope and replaced the cystoscope over the guidewire and placed a 6-[place] 24 cm stent over the guidewire. The patient was then transferred to the recovery room in stable condition. I attest to the content of the Intraoperative Record and any orders documented therein. Any exception s are noted below.
[2020-01-17] MEDS: D5W AND 1/2NSS 1,000 ML IV SCH ×2 (15:58→23:23)
[2020-01-17] MEDS: CIPROFLOXACIN / D5W 400 MG/200 ML BAG IV SCH ×2 (16:16→16:17)
[2020-01-17] MEDS: ASPIRIN 81 MG ECTAB PO SCH (16:21)
[2020-01-17] MEDS: CHOLECALCIFEROL 1,000 UNITS 25 MCG TAB PO SCH (16:21)
[2020-01-17] MEDS: LETROZOLE 2.5 MG TAB PO SCH (16:21)
[2020-01-17] MEDS: HYDROXYCHLOROQUINE SULFATE 200 MG TAB PO SCH (16:21)
[2020-01-17] MEDS ORDERED: KETOROLAC TROMETHAMINE 15 MG/ML VIAL IV ONE (18:31)
[2020-01-17] MEDS ORDERED: KETOROLAC TROMETHAMINE 15 MG/ML VIAL IV PRN (18:34)
[2020-01-17] MEDS ORDERED: FAMOTIDINE 20 MG TAB PO PRN (18:35)
[2020-01-17] MEDS ORDERED: OXYCODONE HCL IR 5 MG TAB (IMMEDIATE RELEASE) PO PRN (18:56)
--- NOTE | 2020-01-17 18:57 | Hospitalist Progress Note ---
Date of Service January 17, 2020 Assessment & Plan (1) Left ureteral stone: Appreciate urology management. S/P left uteroscopy, laser lithotripsy, stone removal and left stent placement Plan for discharge in the morning once pain is better controlled with NSAIDs Toradol 15mg IV Q6H PRN overnight, oxycodone only if Toradol not working. Ondansetron for nausea PRN No indication for ongoing antibiotics with no fevers, WBC or pus during operation. (2) History of breast cancer: Stable now. Patient had a lumpectomy at [facility] in 2014 Patient completed chemo and radiation therapy in 2016 Patient is in remission from a left breast cancer. Continue Letrozole. (3) Systemic lupus erythematosus: Stable. Continue Plaquenil. (4) Insomnia: Continue temazepam 15mg PO HS (5) DVT prophylaxis: SCDs Admission and Anticipated Discharge Date Admission Date: January 16, 2020 Subjective Patient seen post op. Still having significant pressure and pain. over suprapubic and left flank. Passing good amount of urine without issues. No fevers or chills. Review of Systems Review of Systems: All systems reviewed & are unremarkable except as noted in HPI & below Physical Exam Constitutional: well developed; no acute distress Eyes: + anicteric sclerae; normal pupil size ENMT: external ear and nose normal, oropharynx normal Neck: trachea midline Respiratory: normal respiratory effort, lungs clear to auscultation Cardiovascular: RRR, no murmur, no edema Gastrointestinal (Abdomen): Percussion/Palpation: + abdomen tender (suprapubic) and abdomen soft; no guarding and abdomen not rigid Musculoskeletal: no cyanosis or clubbing, extremities motor strength 5/5 Skin: no rashes, warm and dry Neurologic: moves all extremities and awake; not confused Psychiatric: Orientation: alert and oriented x 3 Lymphatic: no cervical or axillary lymphadenopathy Results & Data ([facility]) Vital Signs (Past 12 Hours) Vital Signs Temp Pulse Pulse Pulse Resp BP BP 01/17/20 17:52 37.0 C 71 16 116/75 01/17/20 16:47 36.6 C 74 16 119/76 01/17/20 16:34 37 C 72 18 130/77 01/17/20 15:40 74 15 127/69 01/17/20 15:30 78 15 127/68 01/17/20 15:20 76 15 131/72 01/17/20 15:10 87 20 134/75 01/17/20 15:02 36.5 C 99 H 18 130/79 01/17/20 08:05 37.2 C 65 18 109/70 Pulse Ox 01/17/20 17:52 95 01/17/20 16:47 95 01/17/20 16:34 96 01/17/20 15:40 95 01/17/20 15:30 95 01/17/20 15:20 97 01/17/20 15:10 98 01/17/20 15:02 97 01/17/20 08:05 96 PG Care Time/CCT Total # of Minutes Spent Total Time Spent with Patient: Total time spent is greater than 50% in coordination of care (as documented) at patient's floor/unit and/or counseling patient: Coding Level of Care Code 96792 Subseq Hosp Care Lvl 2 Diagnoses Left ureteral stone N20.1 History of breast cancer Z85.3 Systemic lupus erythematosus M32.19 Systemic lupus erythematosus organ involvement: other Systemic lupus erythematosus type: other Insomnia G47.00 Insomnia type: unspecified DVT prophylaxis Z29.9 (1) Systemic lupus erythematosus Systemic lupus erythematosus organ involvement: other Systemic lupus erythematosus type: other Qualified Code(s): M32.19 - Other organ or system involvement in systemic lupus erythematosus (2) Insomnia Insomnia type: unspecified Qualified Code(s): G47.00 - Insomnia, unspecified
[2020-01-17] MEDS ORDERED: ONDANSETRON 4 MG OD TAB PO PRN (18:59)
[2020-01-17] MEDS: TEMAZEPAM 15 MG CAPSULE PO SCH (23:23)
[2020-01-18 06:10] LABS: Estimated Average Glucose 114 mg/dl; Hemoglobin A1C 5.6 % (4.5-5.6)
[2020-01-18 07:59] VITALS: BP 117/72; PULSE 56; TEMP 97.9; O2SAT 97
--- NOTE | 2020-01-18 08:42 | Urology Progress Note ---
Date of Service January 18, 2020 Assessment & Plan (1) Left ureteral stone: (2) Hydronephrosis, left: 54 year-old admitted with obstructing 4 mm left distal ureteral stone with associated left hydroureteronephrosis. -POD #1 cystoscopy, left ureteroscopy, left laser lithotripsy, stone removal, and left stent placement performed by Dr. Bueno. -Patient clinically progressing as expected. -Remains afebrile. -Final urine culture positive for gram positive bacilli. -Discussed with Dr. Bueno, recommend discharge with PO antibiotic therapy x7 days, PRN Oxybutynin, and pain control. -Okay to discharge from perspective. -Will arrange outpatient follow-up with our service in 7-10 days with [facility] for stent removal and symptom check. -Patient in agreement with plan, all questions answered. Thank you for allowing us to participate in the acute care of Mrs. Arroyo. Please reconsult us with additional questions, concerns or changes in patient status. Subjective 54 year-old female patient POD #1 cystoscopy, left ureteroscopy, left laser li thotripsy, stone removal, and left stent placement performed by Dr. Bueno. Patient admitted with obstructing 4 mm left distal ureteral stone. Patient feeling well today post-procedure. Currently denies pain. Reports she slept well overnight. Denies fevers or chills. Appetite has been well without nausea or vomiting. Has been voiding spontaneously without difficulty. Reports hematuria as expected. Does report some urinary urgency. Denies urinary frequency or hesitancy. Has been out of bed without dizziness or lightheadedness. She feels well enough to be discharged today. Chart review: Afebrile Urine culture positive for gram positive bacilli. Blood culture prelim no growth. Wbc 7.04 Hgb 12.8 Creatinine 0.67 Denies acute urologic concerns today. Review of Systems Constitutional: no fever and no chills Gastrointestinal: no nausea and no vomiting Genitourinary: as per Subjective / HPI Neurologic: no dizziness and no syncope Physical Exam Constitutional: well developed and well nourished; no acute distress and not ill appearing Respiratory: normal respiratory effort and able to speak in complete sentences; no respiratory distress and no audible wheezes Gastrointestinal (Abdomen): Inspection/Auscultation: abdomen normal to inspection; abdomen not distended Percussion/Palpation: abdomen soft; abdomen nontender and no guarding Psychiatric: Orientation: alert, oriented x 3 and cooperative Affect: euthymic affect Genitourinary: no CVA tenderness Voided urine clear pink in color without visible clots. Results & Data Vital Signs (Past 12 Hours) Vital Signs Temp Pulse Resp BP Pulse Ox 01/18/20 07:46 36.6 C 56 L 16 117/72 97 01/18/20 03:34 36.5 C 64 16 95/62 L 96 01/17/20 23:15 37.0 C 68 16 102/61 95 PG Care Time/CCT Total # of Minutes Spent Total Time Spent with Patient: Total time spent is greater than 50% in coordination of care (as documented) at patient's floor/unit and/or counseling patient: Coding Level of Care Code 73339 Subseq Hosp Care Lvl 2 Diagnoses Left ureteral stone N20.1 Hydronephrosis, left N13.30
[2020-01-18 08:56] LABS: Basophils # (auto) 0.01 K/uL (0-0.2); Basophils % (auto) 0.1 %; Eosinophils # (auto) 0.02 K/uL (0-0.5); Eosinophils % (auto) 0.3 %; Hematocrit (blood only) 38.2 % (37-47); Hemoglobin 12.8 g/dL (12.0-16.0); Immature Granulocytes # (auto) 0.02 K/uL (0.00-0.02); Immature Granulocytes % (auto) 0.3 %; Lymphocytes # (auto) 1.28 K/uL (1.2-3.4); Lymphocytes % (auto) 18.2 %; Mean Corpuscular Hemoglobin 31.6 pg (25-34); Mean Corpuscular Hgb Conc 33.5 g/dL (32-36); Mean Corpuscular Volume 94.3 fL (80-100); Mean Platelet Volume 9.3 fL (7.4-10.4); Monocytes # (auto) 0.54 K/uL (0.11-0.59); Monocytes % (auto) 7.7 %; Neutrophils # (auto) 5.17 K/uL (1.4-6.5); Neutrophils % (auto) 73.4 %; Platelet Count 192 K/uL (130-400); RDW Coefficient of Variation 12.4 % (11.5-14.5); RDW Standard Deviation 42.5 fL (36.4-46.3); Red Blood Count 4.05 M/uL (4.2-5.4); White Blood Count 7.04 K/uL (4.8-10.8)
[2020-01-18 09:13] LABS: BUN Creatinine Ratio 12.4 (10-20); Calcium 8.5 mg/dl (8.5-10.1); Creatinine Clr Calc Pharmacy 85.7 ml/min; Est GFR (African American) 113.9; Est GFR (Non-African American) 98.3; Potassium 3.9 mmol/L (3.5-5.1)
[2020-01-18] MEDS: ASPIRIN 81 MG ECTAB PO SCH (10:24)
[2020-01-18] MEDS: HYDROXYCHLOROQUINE SULFATE 200 MG TAB PO SCH (10:24)
[2020-01-18] MEDS: CHOLECALCIFEROL 1,000 UNITS 25 MCG TAB PO SCH (10:24)
[2020-01-18] MEDS: LETROZOLE 2.5 MG TAB PO SCH (10:25)
--- NOTE | 2020-01-18 13:07 | Electrocardiogram Report ---
Test Reason : Blood Pressure : / mmHG Vent. Rate : 059 BPM Atrial Rate : 059 BPM P-R Int : 152 ms QRS Dur : 078 ms QT Int : 444 ms P-R-T Axes : 049 056 060 degrees QTc Int : 439 ms Sinus bradycardia Possible Lateral infarct , age undetermined Abnormal ECG No previous ECGs available Confirmed by Oli Butler ([id number]) on 01/18/2020 1:07:25 PM Referred By: REFERRED SELF Confirmed By:Oli Butler
--- NOTE | 2020-01-18 18:00 | Discharge Summary ---
Date of Service January 18, 2020 Admission HPI Per Admitting Provider The patient is a 54 years old female with past medical history of right breast carcinoma s/p lumpectomy, chemo and radiation therapy, lupus on hydrochloroquine who presents to the emergency room with a complaint of left flank pain. Patient states that on December 26 she contacted her doctor urologist from [place] for dysuria and urinary frequency over the phone and she was diagnosed UTI. Patient was started on Macrobid and initially her symptoms improved but then started to worsen again on January 12. At that point patient was started on cefadroxil. Initially cefadroxil was helping somewhat but then the symptoms were worsening and she developed severe left lower quadrant tenderness radiating across her abdomen after her left flank. Patient went to urgent care where she had urine analysis and she was told that she has pyelonephritis and she was sent to the emergency room for further evaluation and treatment. Patient reports subjective fevers but did not measure, denies headache, chest pain, shortness of breath, hemoptysis, hematuria, dysuria, melena, syncope or near syncope. Labs are reviewed which shows WBCs 8.57, hemoglobin 13.8, hematocrit 40.1, platelets 201, sodium 138, potassium 3.9, chloride 108, carbon dioxide 25, anion gap 5, BUN 14, creatinine 1.05, GFR 59.3, BUN 13.7, calcium 9, total bilirubin 0.5, AST 17, ALT 20, alkaline phosphatase 52, total protein 7.3, albumin 4, globulin 3.3, lipase 172, urine positive for RBCs, WBCs 5-10, epithelial cells 10-20, and urine bacteria 1+. The abdomen and pelvis: Suspected obstructing 4 mm distal left ureteral calculus immediately proximal to the left UV J. Evaluation limited by poor visualization of the left ureter. Associated with mild left hydro- ureteronephrosis. Given the ambiguity of the distal left ureteral calculus finding recommended correlate with urine analysis to exclude infection as a cause for the left collecting system dilatation in the parents of the left kidney. Status post cholecystectomy. Decision was made to admit patient to [facility] on telemetry for pyelonephritis and nephrolithiasis. Principal Diagnosis Ureterolithiasis Discharge Exam In general she is awake and alert pleasant no distress. HEENT normocephalic atraumatic mucous membranes moist. Breathing unlabored no accessory muscle use good effort. Skin shows no rashes no pallor or icterus. Neuro shows cranial nerves II through XII be grossly intact gross motor and sensory intact. Discharge Data Allergies Allergy/AdvReac Type Severity Reaction Status Date / Time codeine Allergy Hives Unverified 01/16/20 11:27 Sulfa (Sulfonamide AdvReac Headache Unverified 01/16/20 11:27 Antibiotics) Consultations 01/16/20 13:39 ED Decision to Admit Stat 01/16/20 15:40 Consult Urology Routine Procedures Performed Operation Date: 01/17/20 13:00 Actual Procedures p Cystoscopy, Left ureteroscopy, laser lithotripsy, stone removal, and Left stent placement(Left) - Oli Bueno MD Ordered Studies 01/16/20 12:04 CT abd pelvis wo con Stat 01/17/20 11:33 FL KUB Routine 01/17/20 15:08 FL fluoroscopy <1hr Routine Hospital Course (1) Left ureteral stone: Appreciate urology management. S/P left uteroscopy, laser lithotripsy, stone removal and left stent placement Pain controlled, urology requested discharge with a week of antibioticsgiven that she was given Cipro perioperatively we will finish out course of treatment with this. Patient had noted that greater than a decade ago she got C. difficile related to Cipro, given that it was that long ago she does not appear to be higher than an average risk for recurrence, given a small degree of data supporting possibly a small benefit, recommended probiotics for the duration of the Cipro. (2) History of breast cancer: Stable now. Patient had a lumpectomy at [facility] in 2014 Patient completed chemo and radiation therapy in 2016 Patient is in remission from a left breast cancer. Continue Letrozole. (3) Systemic lupus erythematosus: Stable. Continue Plaquenil. (4) Insomnia: Continue temazepam 15mg PO HS (5) DVT prophylaxis: SCDs utilized during her stay Stable for discharge to home Total Time Total Time Spent Total Time Spent (In Minutes): <30 Discharge Plan Discharge Items Patient Disposition: Home - Self-Care Reason For Visit: Renal Colic Discharge Diagnosis: Left ureteral stone Condition on Discharge: Good Activity: Resume your previous activity Non-emergency contact: Urologist Call non-emergency contact if: you have any medication questions and your temperature is above 101 Follow-up/Referrals: Oli Bueno MD [Physician] - 01/26/20 1:00 pm () Lincoln Neely M.D. [Primary Care Provider] - 01/25/20 11:00 am Diet: Regular Addtl Attending Provider Instructions: You were admitted to [facility] from January 15 to 2019 due to left flank pain. CT and and subsequent intravenous pyelogram showed a possible stone in the distal left ureter. You underwent cystoscopy with left ureteroscopy, laser lithotripsy with stone removal and left ureteral stent placement. Please call the number above to arrange follow up with urology for stent removal and results of the stone analysis. Kind regards, Dr Alhaji Durham Pending Studies at Discharge: Yes (stone analysis) Stand-Alone Forms: My [facility] Medications and DC Order Prescriptions: New ibuprofen 800 mg tablet 800 mg PO TID PRN (Reason: pain) Qty: 14 RF: 0 ciprofloxacin HCl [Cipro] 250 mg tablet 250 mg PO BID Qty: 14 RF: 0 Continued aspirin 81 mg Tablet,Delayed Release (Dr/Ec) 81 mg PO DAILY RF: 0 temazepam 15 mg capsule 15 mg PO HS RF: 0 hydroxychloroquine 200 mg tablet 200 mg PO DAILY RF: 0 letrozole 2.5 mg tablet 2.5 mg PO DAILY RF: 0 cholecalciferol (vitamin D3) [Vitamin D3] 25 mcg (1,000 unit) Tablet 1,000 unit PO DAILY RF: 0 Prolia 60 mg/mL Syringe 60 mg SUBCUT Q6M RF: 0 biotin 1 mg Capsule 1 mg PO DAILY RF: 0 Discontinued cefadroxil 500 mg capsule 500 mg PO BID RF: 0 Discharge Orders: Discharge Order (Routine); Ordered 01/18/20 Ordered By: Scott Layton/Other Patient Handouts: Stents Ureteral Admission Data Admit Date/Time: 01/16/20 14:02 Attending Provider: Scott Quintero Admit Provider: Felipe Hector Primary Care Provider: Lincoln Neely Other Providers: Felipe Hector ; Oli Bueno ; Alhaji Durham Other Interventions: Discharge Summary Assessment (RN) Last Done: 01/18/20 11:45 DC Date/Time DO NOT enter until pt leaves facility: 01/18/20 14:43 Coding Level of Care Code D/C Day Management <30 mins Diagnoses Left ureteral stone N20.1 History of breast cancer Z85.3 Systemic lupus erythematosus M32.19 Systemic lupus erythematosus type: other Systemic lupus erythematosus organ involvement: other Insomnia G47.00 Insomnia type: unspecified DVT prophylaxis Z29.9
[2020-01-21 02:39] LABS: Calculus Nidus Not Observed; Component 2 DNR; Source LEFT URETERAL STONE
== END 2020-01-18 14:43 | disposition home or self-care (01) | DRG 661 ==
LOC: ED 10:41 → 3W 14:02 → SUATTDRO 14:02 → 3W 15:23

== ENCOUNTER 2023-09-17 09:36 | Inpatient (IN) ==
[2023-09-17] MEDS ORDERED: SODIUM CHLORIDE 0.9% 1,000 ML IV STA (10:06)
[2023-09-17] MEDS ORDERED: ONDANSETRON INJ 2 MG/ML 2 ML VIAL IV STA (10:06)
--- NOTE | 2023-09-17 10:09 | Emergency Department Note ---
Impression & Plan Crush fracture of lumbar vertebra, Lumbar disc herniation ED Provider Note NAME: BRYANNA DUKES AGE: 58 SEX: F : 1965 ARRIVES VIA: Walk-In INFORMANT: Patient, ED PROVIDER(S): Sam Rea DO CHIEF COMPLAINT: Back pain HPI: The patient is a 58-year-old female who is a history of breast cancer who presented to the emergency department for back pain. The patient states that she has been having back pain for the last few months. She was seen by Dr. Almaraz's office. She was diagnosed with a lumbar compression fracture. She denies having any trauma but she has been doing a lot of heavy lifting lately. She denies having any upper back pain or abdominal pain. She denies having any saddle anesthesia. She does note spasms in the muscles in her back. The patient states she is having some trouble walking recently. She feels unsteady on her feet. ROS: See above HPI for pertinent positives & negatives. A total of 10 systems reviewed and were otherwise negative. PAST MEDICAL HISTORY: See Below PAST SURGICAL HISTORY: See Below FAMILY HISTORY: See Below SOCIAL HISTORY: See Below HOME MEDICATIONS: See Below ALLERGIES: See Below VITALS: See Below PHYSICAL EXAMINATION: GENERAL: The patient is awake and alert. She is very anxious and appears to be uncomfortable. EYES: The conjunctivae are clear. The pupils are round and reactive. EARS, NOSE, MOUTH AND THROAT: The nose is without any evidence of any deformity. NECK: The neck is nontender and supple. RESPIRATORY: Normal respiratory effort is noted there is no evidence of wheezing rhonchi or rales CARDIOVASCULAR: Regular rate and rhythm noted there no murmurs rubs or gallops normal S1 normal S2. GASTROINTESTINAL: The abdomen is soft. Abdomen is nontender. BACK: There was midline lumbar tenderness to palpation. There is no thoracic tenderness to palpation. Range of motion elicits pain. MUSCULOSKELETAL/EXTREMITIES: There is no evidence of gross deformity full range of motion is noted in the hips and shoulders. SKIN: There is no obvious evidence of any rash. There are no petechiae, pallor or cyanosis noted. NEUROLOGIC: Patient is awake alert and oriented x3 strength is symmetric patellar reflexes are 2+ bilaterally. Great toe raise was symmetric. MEDICAL DECISION MAKING: The patient is a 58-year-old female who presented to the emergency department for an evaluation of back pain. The patient had no specific trauma but she has been doing heavy lifting recently. She was found to have compression fracture of her lumbar spine on x-ray. The patient presented to the emergency department because of severe pain. The patient was neurologically intact. She was having some radicular symptoms especially to the left hip. I discussed the patient's laboratory and radiographic studies with her. An MRI was obtained. Given the patient's history of breast cancer this was obtained to ensure there is no underlying pathology such as metastatic disease. Ultimately she was found to have multiple compression fractures as well as disc herniation. She was treated with pain medication as well as IV steroids. I discussed her condition with the on-call [facility] hospitalist group as well as the on-call orthopedic spinal surgeon. Triage Nursing notes reviewed. Prior medical records reviewed Vital Signs: reviewed and remarkable for no significant abnormalities Differential diagnosis: Musculoskeletal, disc herniation, fracture, metastatic disease, cord compression, discitis, sciatica, cauda equina, infection, aortic disease, renal colic, gastrointestinal, as well as other pathologies. ER treatment provided: See below Diagnostics interpreted by me: ECG: none Cardiac Monitoring: An order was placed for continuous cardiac monitoring. The monitor shows a rate of 92 bpm with sinus rhythm. Laboratory studies: As stated above and show below. Imaging studies: See below. Radiographic imaging was reviewed by myself Consultation(s): I discussed this case with Dr Durham I discussed this case with Dr Almaraz Past Med/Surg History Medical History (Updated 09/17/23 @ 16:36 by Sam Rea DO) Left ureteral stone Stress fracture of left foot Lymphedema of right upper extremity Breast cancer Chronic UTI Surgical History S/P tubal ligation S/P tonsillectomy S/P hemorrhoidectomy S/P D&C (status post dilation and curettage) Family History Mother Hypertension Father Hypertension Grandmother (Maternal) Diabetes Heart disease Social History Smoking Status: Never smoker Second Hand Exposure: No; Do You Dip or Chew Tobacco: No; Hx Alcohol Use: Yes Alcohol type: other Hx Substance Use: No Preferred Language: Bengali Communication Ability: Effective Visual Impairment: No Limitations Residential Door Unit Installer Required: No Beliefs That Will Affect Care: None Current Living Situation: Spouse Feels Safe at Home: Yes Assistive Devices: None Allergies Allergies Allergy/AdvReac Type Severity Reaction Status Date / Time codeine Allergy Hives Unverified 04/25/22 14:33 Sulfa (Sulfonamide AdvReac Headache Unverified 04/25/22 14:33 Antibiotics) Home Meds Home Medications Medication Instructions Recorded Confirmed aspirin 81 mg tablet,delayed 81 mg PO DAILY 01/16/20 09/17/23 release cholecalciferol (vitamin D3) 25 1,000 unit PO DAILY 01/16/20 09/17/23 mcg (1,000 unit) tablet (Vitamin D3) letrozole 2.5 mg tablet 2.5 mg PO DAILY 01/16/20 09/17/23 acetaminophen 500 mg tablet 1,000 mg PO DAILY PRN Pain 06/29/23 09/17/23 albuterol sulfate 90 mcg/actuation 2 puff inhalation Q6H PRN Wheezing 06/29/23 09/17/23 aerosol inhaler escitalopram oxalate 10 mg tablet 10 mg PO DAILY 06/29/23 09/17/23 Previous Rx's Medication Instructions Recorded ibuprofen 800 mg tablet 800 mg PO TID PRN pain #14 tabs 01/18/20 nirmatrelvir 300 mg (150 mg See Rx Instructions PO .COMPLEX 06/29/23 x2)-ritonavir 100 mg tablet,dose #30 tabs pack (Paxlovid) Results & Data (ED) Vital Signs Vital Signs - 24 hr 09/17/23 09:36 09/17/23 09:55 09/17/23 10:39 Temperature 36.6 C Temperature Source Temporal Artery Scan Pulse Rate 74 73 Pulse Rate [Apical] 92 H Pulse Rhythm [Apical] Regular Respiratory Rate 18 18 Respiratory Effort / Characteristics Non-Labored Spontaneous Respiratory Depth Normal Blood Pressure 107/66 Blood Pressure [Left Arm] 138/71 Blood Pressure Mean 79 Blood Pressure Mean [Left Arm] 93 Pulse Oximetry 99 99 Oxygen Delivery Method Room Air Sepsis Recent Fever Within 48 Hours No Sepsis New/Unexplained Change in Mental Status N/A Sepsis Action Taken by Nursing No Action Required 09/17/23 11:14 Temperature Temperature Source Pulse Rate Pulse Rate [Apical] Pulse Rhythm [Apical] Respiratory Rate Respiratory Effort / Characteristics Respiratory Depth Blood Pressure Blood Pressure [Left Arm] Blood Pressure Mean Blood Pressure Mean [Left Arm] Pulse Oximetry 100 Oxygen Delivery Method Room Air Sepsis Recent Fever Within 48 Hours Sepsis New/Unexplained Change in Mental Status Sepsis Action Taken by Custodial Medications Current Medication List: was personally reviewed by me Laboratory Data Attestation: I reviewed the patient's lab results. 09/17/23 10:32 09/17/23 10:32 Lab Results 09/17/23 09/17/23 Range/Units 10:32 11:13 WBC 8.41 (4.8-10.8) K/ul RBC 4.13 L (4.20-5.40) M/uL Hgb 13.4 (12.0-16.0) g/dl Hct 40.2 (37.0-47.0) % MCV 97.3 (80.0-100.0) fL MCH 32.4 (25.0-34.0) pg MCHC 33.3 (32.0-36.0) g/dL RDW Std Deviation 46.4 H (36.4-46.3) fL RDW Coeff of Jesús 12.9 (11.5-14.5) % Plt Count 234 (130-400) K/uL MPV 8.9 L (9.4-12.4) fL Immature Gran % (Auto) 0.8 % Neut % (Auto) 71.3 % Lymph % (Auto) 18.3 % Alcorn % (Auto) 7.6 % Eos % (Auto) 1.4 % Baso % (Auto) 0.6 % Neut # (Auto) 5.99 (1.40-6.50) K/uL Lymph # (Auto) 1.54 (1.20-3.40) K/uL Alcorn # (Auto) 0.64 H (0.11-0.59) K/uL Eos # (Auto) 0.12 (0.00-0.50) K/uL Baso # (Auto) 0.05 (0.00-0.20) K/uL Immature Gran # (Auto) 0.07 (0.01-0.20) K/uL Sodium 140 (136-145) mmol/L Potassium 3.9 (3.5-5.1) mmol/L Chloride 103 (98-107) mmol/L Carbon Dioxide 30 (21-32) mmol/L Anion Gap 7 (3-11) BUN 16 (6-23) mg/dl Creatinine 0.78 (0.6-1.2) mg/dl Est Cr Clr Drug Dosing 69.5 ml/min Est GFR ( Amer) 95.8 ml/min Est GFR (Non-Af Amer) 82.6 ml/min BUN/Creatinine Ratio 20.5 H (10-20) Glucose 120 H (70-99(Fasting)) mg/dl Calcium 10.1 (8.6-10.3) mg/dl Total Bilirubin 0.5 (0.2-1.0) mg/dl AST 19 (13-39) U/L ALT 25 (7-52) U/L Alkaline Phosphatase 146 H (34-104) U/L Total Protein 7.1 (6.0-8.3) gm/dl Albumin 4.2 (3.4-5.0) gm/dl Globulin 2.9 (2.5-4.0) gm/dl Albumin/Globulin Ratio 1.4 (0.9-2) Lipase 40 (11-82) U/L Urine Color Yellow Urine Appearance Clear (Clear) Urine pH 7.0 (4.5-7.5) Ur Specific [place] 1.006 (1.000-1.030) Urine Protein Negative (Negative) Urine Glucose (UA) Negative (Negative) Urine Ketones Negative (Negative) Urine Blood 2+ H (Negative) Urine Nitrite Negative (Negative) Urine Bilirubin Negative (Negative) Urine Urobilinogen Negative (Negative) Ur Leukocyte Esterase Negative (Negative) Urine WBC (Auto) 1-5 (0-5) /hpf Urine RBC (Auto) 10-30 H (0-4) /hpf U Hyaline Cast (Auto) 0 (0-5) /lpf U Epithel Cells (Auto) 0-5 (0-5) /lpf Urine Bacteria (Auto) Negative (Negative) Administered Medications Acetaminophen (Acetaminophen 325 Mg Tab) 650 mg PO Q6H CHEPE Stop: 10/17/23 13:59 Last Admin: 09/17/23 14:17 Dose: 650 mg Documented By: JOLEEN Discontinued Medications Dexamethasone Sodium Phosphate (DexamethasonePf 10 Mg/Ml Vial) 10 mg IV NOW ONE Stop: 09/17/23 12:58 Last Admin: 09/17/23 13:07 Dose: 10 mg Documented By: JOLEEN Gadobutrol (Gadobutrol 65ml Vial) 6.4 ml IV ONCE ONE Stop: 09/17/23 12:14 Last Admin: 09/17/23 12:13 Dose: 6.4 ml Documented By: MLD Hydromorphone HCl (Hydromorphone Inj 0.5 Mg/0.5 Ml Syr) 0.5 mg IV NOW STA Stop: 09/17/23 12:58 Last Admin: 09/17/23 13:07 Dose: 0.5 mg Documented By: JOLEEN Sodium Chloride (Nss) 1,000 mls @ 999 mls/hr IV .Q1H1M STA Stop: 09/17/23 11:06 Last Infusion: 09/17/23 13:41 Dose: Infused Documented By: Admin: 09/17/23 10:37 Dose: 999 mls/hr Documented By: LUKASZ Morphine Sulfate (Morphine Sulfate 4 Mg/Ml 1 Ml Carp\Vial) 4 mg IV Q15M PRN PRN Reason: Pain Stop: 10/01/23 10:05 Last Admin: 09/17/23 12:32 Dose: 4 mg Documented By: Admin: 09/17/23 11:34 Dose: 4 mg Documented By: Admin: 09/17/23 10:37 Dose: 4 mg Documented By: LUKASZ Ondansetron HCl (Ondansetron Inj 2 Mg/Ml 2 Ml Vial) 4 mg IV NOW STA Stop: 09/17/23 10:07 Last Admin: 09/17/23 10:37 Dose: 4 mg Documented By: HS Imaging Data Attestation: I personally reviewed and interpreted this imaging study as follows: My Impression: MRI of the lumbar spine was obtained. My interpretation is compression fracture noted in the upper lumbar spine, final report below. Radiologist's Impression: Lumbar Spine MRI 09/17/23 10:06 LUMBAR SPINE MRI WITH AND WITHOUT CONTRAST HISTORY: lumbar pain, comp fx, hx of breast CA TECHNIQUE: Multiplanar multisequence MRI of the lumbar spine was performed both before and after the intravenous administration of contrast. COMPARISON: Abdomen and pelvis CT 04/26/2020. FINDINGS: For the purpose of the report the L5-S1 disc space will be located on axial image 27 of 30. Mild endplate edema throughout the lumbar spine and the T12 vertebral body. There are mild superior endplate compression fractures from L1 through L5 demonstrating up to 15% loss of height at the L3 level. No significant retropulsion. Therefore, these are consistent with subacute compression fractures. There is also mild subacute superior and inferior endplate compression fractures at T12 demonstrating up to 10% loss of height. The visualized sacrum is intact. No subluxation. Mild disc space narrowing at L1-L2 and L3-L4. The remaining disc spaces are preserved. The conus terminates at the L1-L2 disc space level. Minimal paravertebral edema at the T12-L1 level. No fractures within the posterior elements. No epidural fluid collections identified. Endplate enhancement within T12 and throughout the lumbar spine likely corresponds to the subacute fractures. Partially visualized 7 mm T2 hyperintense nonenhancing lesion within the right kidney. This favors a cyst. L1-L2: Small broad-based posterior disc osteophyte complex with a 3 mm left paracentral/foraminal focal disc protrusion. This disc protrusion slightly displaces the transiting left L3 nerve roots. However, no significant central canal or neural foraminal narrowing. L2-L3: Small broad-based posterior disc bulge without significant central canal or neural foraminal narrowing. L3-L4: There is a broad-based posterior disc bulge with a 5 mm right paracentral focal disc protrusion. This abuts and displaces the transiting right L4 nerve roots and results in moderate narrowing of the right lateral recess. However, no significant central canal narrowing. L4-L5: Small broad-based posterior disc bulge without significant central canal or neural foraminal narrowing. L5-S1: No significant central canal or neural foraminal narrowing. IMPRESSION: 1. Mild endplate compression fractures from T12 through L5 as described above. These are likely subacute. No significant retropulsion. 2. There is a 5 mm right paracentral focal disc protrusion at L3-L4 which abuts and displaces the transiting right L4 nerve roots. 3. There is a 3 mm left paracentral focal disc protrusion at L1-L2 with slightly displaces the transiting left L2 nerve roots. 4. No significant central canal narrowing. ACT 112: Negative or not required by law. Electronically signed by: Danny Jack M.D. 09/17/2023 12:40 PM Discharge Plan Visit Data Chief Complaint: Back Injury/Pain Stated Complaint: FRACTURE IN SPINE,BACK PAIN ED Provider: Sam Rea Discharge Problem: Crush fracture of lumbar vertebra, Lumbar disc herniation Patient Disposition: Admitted As Inpatient Discharge Instructions Interventions: ED Discharge Assessment Last Done: 09/17/23 16:33 Discharge Problem: Crush fracture of lumbar vertebra Qualifiers: Encounter type: initial encounter Fracture type: closed Qualified Code(s): S 32.008A - Other fracture of unspecified lumbar vertebra, initial encounter for closed fracture
[2023-09-17] MEDS: MoRPHine SULFATE 4 MG/ML 1 ML CARP\\VIAL IV PRN ×3 (10:37→12:32)
[2023-09-17 10:46] LABS: Basophils # (auto) 0.05 K/uL (0.00-0.20); Basophils % (auto) 0.6 %; Eosinophils # (auto) 0.12 K/uL (0.00-0.50); Eosinophils % (auto) 1.4 %; Hematocrit (blood only) 40.2 % (37.0-47.0); Hemoglobin 13.4 g/dl (12.0-16.0); Immature Granulocytes # (auto) 0.07 K/uL (0.01-0.20); Immature Granulocytes % (auto) 0.8 %; Lymphocytes # (auto) 1.54 K/uL (1.20-3.40); Lymphocytes % (auto) 18.3 %; Mean Corpuscular Hemoglobin 32.4 pg (25.0-34.0); Mean Corpuscular Hgb Conc 33.3 g/dL (32.0-36.0); Mean Corpuscular Volume 97.3 fL (80.0-100.0); Mean Platelet Volume 8.9 fL (9.4-12.4); Monocytes # (auto) 0.64 K/uL (0.11-0.59); Monocytes % (auto) 7.6 %; Neutrophils # (auto) 5.99 K/uL (1.40-6.50); Neutrophils % (auto) 71.3 %; Platelet Count 234 K/uL (130-400); RDW Coefficient of Variation 12.9 % (11.5-14.5); RDW Standard Deviation 46.4 fL (36.4-46.3); Red Blood Count 4.13 M/uL (4.20-5.40); White Blood Count 8.41 K/ul (4.8-10.8)
[2023-09-17 11:06] LABS: Albumin Globulin Ratio 1.4 (0.9-2); Albumin Level 4.2 gm/dl (3.4-5.0); BUN Creatinine Ratio 20.5 (10-20); Bilirubin,Total 0.5 mg/dl (0.2-1.0); Calcium 10.1 mg/dl (8.6-10.3); Creatinine Clr Calc Pharmacy 69.5 ml/min; Est GFR (African American) 95.8 ml/min; Est GFR (Non-African American) 82.6 ml/min; Globulin 2.9 gm/dl (2.5-4.0); Potassium 3.9 mmol/L (3.5-5.1); Total Protein 7.1 gm/dl (6.0-8.3)
[2023-09-17 11:36] LABS: Appearance Urine Clear (Clear); Bacteria Urine Automated Negative (Negative); Bilirubin Urine Negative (Negative); Blood Urine 2+ (Negative); Cast Urine Automated 0 /lpf (0-5); Color Urine Yellow; Epithelial Cell Urine Auto 0-5 /lpf (0-5); Glucose Urine UA Negative (Negative); Ketones Urine Negative (Negative); Leukocyte Esterase Urine Negative (Negative); Nitrite Urine Negative (Negative); Protein Urine Negative (Negative); Specific Gravity Urine 1.006 (1.000-1.030); Urobilinogen Urine Negative (Negative)
[2023-09-17] MEDS ORDERED: GADOBUTROL 65ML VIAL IV ONE (12:13)
--- NOTE | 2023-09-17 12:41 | Magnetic Resonance Report ---
LUMBAR SPINE MRI WITH AND WITHOUT CONTRAST HISTORY: lumbar pain, comp fx, hx of breast CA TECHNIQUE: Multiplanar multisequence MRI of the lumbar spine was performed both before and after the intravenous administration of contrast. COMPARISON: Abdomen and pelvis CT 04/26/2020. FINDINGS: For the purpose of the report the L5-S1 disc space will be located on axial image 27 of 30. Mild endplate edema throughout the lumbar spine and the T12 vertebral body. There are mild superior e ndplate compression fractures from L1 through L5 demonstrating up to 15% loss of height at the L3 lev el. No significant retropulsion. Therefore, these are consistent with subacute compression fractures. There is also mild subacute superior and inferior endplate compression fractures at T12 demonstratin g up to 10% loss of height. The visualized sacrum is intact. No subluxation. Mild disc space narrowin g at L1-L2 and L3-L4. The remaining disc spaces are preserved. The conus terminates at the L1-L2 disc space level. Minimal paravertebral edema at the T12-L1 level. No fractures within the posterior levelock ents. No epidural fluid collections identified. Endplate enhancement within T12 and throughout the remington mbar spine likely corresponds to the subacute fractures. Partially visualized 7 mm T2 hyperintense no nenhancing lesion within the right kidney. This favors a cyst. L1-L2: Small broad-based posterior disc osteophyte complex with a 3 mm left paracentral/foraminal foc al disc protrusion. This disc protrusion slightly displaces the transiting left L3 nerve roots. Howev er, no significant central canal or neural foraminal narrowing. L2-L3: Small broad-based posterior disc bulge without significant central canal or neural foraminal n arrowing. L3-L4: There is a broad-based posterior disc bulge with a 5 mm right paracentral focal disc protrusio n. This abuts and displaces the transiting right L4 nerve roots and results in moderate narrowing of the right lateral recess. However, no significant central canal narrowing. L4-L5: Small broad-based posterior disc bulge without significant central canal or neural foraminal n arrowing. L5-S1: No significant central canal or neural foraminal narrowing. IMPRESSION: 1. Mild endplate compression fractures from T12 through L5 as described above. These are likely subac tunica-biloxi. No significant retropulsion. 2. There is a 5 mm right paracentral focal disc protrusion at L3-L4 which abuts and displaces the tra nsiting right L4 nerve roots. 3. There is a 3 mm left paracentral focal disc protrusion at L1-L2 with slightly displaces the transi ting left L2 nerve roots. 4. No significant central canal narrowing. ACT 112: Negative or not required by law. Electronically signed by: Danny Jack M.D. 09/17/2023 12:40 PM
[2023-09-17] MEDS ORDERED: HYDROmorphone INJ 0.5 MG/0.5 ML SYR IV STA (12:57)
[2023-09-17] MEDS ORDERED: dexAMETHasone**PF** 10 MG/ML VIAL IV ONE (12:57)
--- NOTE | 2023-09-17 13:13 | History & Physical Report ---
Date of Service September 17, 2023 Assessment & Plan (1) Lumbar compression fracture: Plan: Pt is a 58 yo female with PMH of breast cancer (dx 2014, s/p right lumpectomy, chemo, and radiation) with subsequent right UE lymphedema presenting to the ED d/t progressively worsening back pain. Multiple lumbar compression fx, lumbar disc herniations - lumbar MRI showed compression fx of T12-L5 with right L3-L4 and left L1-L2 herniations - concern for recurrent/metastatic breast cancer especially with elevated ALP; discussed bone scan with nuclear medicine- ordered for tomorrow - pt tried bisphosphonates in the past but had significant GI side effects; pt was then tx with prolia [id number]- last injection ~1 yr ago (discontinuation of prolia is also a significant risk factor for vertebral fractures) - ortho spine consulted - pain control as follows: tylenol 650 mg q6hr scheduled, ibuprofen 800 mg q8hr scheduled, dilaudid 0.25mg q3hr PRN for breakthrough pain - PT/OT consulted History of breast cancer - s/p right lumpectomy, chemo, and radiation (last in 2015); pt follows with Dr. Brittnee Lawler ([phone]) - continue home letrozole 2.5 mg daily; plan was to continue this for 10 yrs; may need to consider d/c this if fractures secondary to severe osteoporosis - bone scan as above Microscopic hematuria - chronic, follows with urology outpatient - no inpatient needs SLE - per pt, follows with rheum (Dr. Lincoln Gordon with [facility]: [phone]) outpatient for this - used to be on Plaquenil for years but has not been on this for awhile w/o issue - hx of episodic steroid use but no hx of prolonged steroid courses - per pt, she believes she may have been put on a daily aspirin d/t her SLE but pt is unsure; no hx of OR or stroke; recommend discussion with PCP concerning continued aspirin use Depression/anxiety - continue home lexapro 10 mg daily Diet: regular DVT ppx: defer at this point d/t presumed short hospital stay; if prolonged, would consider adding chemical ppx Code: full; pt may want to discuss again in the future as she was unsure about the extent of what should would want done Dispo: admit for observation to med/surg for pain control (2) Lumbar disc herniation: (3) History of breast cancer: (4) Microscopic hematuria: (5) Systemic lupus erythematosus: History of Present Illness Chief Complaint: back pain Primary Care Provider: Lincoln Neely Pt is a 58 yo female with PMH of breast cancer (dx 2014, s/p right lumpectomy, chemo, and radiation) with subsequent right UE lymphedema presenting to the ED d/t progressively worsening back pain. Pt states that she was given the diagnosis of one compression fracture back on September [address] Almaraz's office. She was given a short course of steroids to help with the pain- this did help while she was taking them but after the course ended her pain rebounded and was even worse. Over the last week, she notes that the pain has become so bad that she has difficulty walking. Her pain is mostly central over her lower back with radiation to bilateral hips. She denies numbness/tingling and pain that radiates down into her legs. She denies saddle paresthesias and loss of bowel/bladder control. Pt notes that she was on prolia for years until she was told she could no longer be on it (total of 3 years). She tried a bisphosphonate prior to this but had significant GI upset. She has a hx of osteopenia. Her last injection was ~1 yr ago. In the ER, pt received 12 mg morphine, 0.5 mg dilaudid, and 10 mg dexamethasone. Pt's lab work significant for no leukocytosis, Hgb 13.4, no electrolyte abnormalities, Cr 0.78, alk phos 146. Her UA showed 2+ blood w/o signs of infection. Pt follows with urology for nephrolithiasis and hematuria. Lumbar MRI showed compression fx of T12-L5 and disc protrusions on the right at L3-L4, disc protrusions on the left at L1-L2. No central canal narrowing noted. Allergies Allergy/AdvReac Type Severity Reaction Status Date / Time codeine Allergy Hives Unverified 04/25/22 14:33 Sulfa (Sulfonamide AdvReac Headache Unverified 04/25/22 14:33 Antibiotics) Home Medications Medication Instructions Recorded Confirmed Type aspirin 81 mg tablet,delayed 81 mg PO DAILY 01/16/20 09/17/23 History release cholecalciferol (vitamin D3) 25 1,000 unit PO DAILY 01/16/20 09/17/23 History mcg (1,000 unit) tablet (Vitamin D3) letrozole 2.5 mg tablet 2.5 mg PO DAILY 01/16/20 09/17/23 History ibuprofen 800 mg tablet 800 mg PO TID PRN pain #14 tabs 01/18/20 09/17/23 Rx acetaminophen 500 mg tablet 1,000 mg PO DAILY PRN Pain 06/29/23 09/17/23 History albuterol sulfate 90 mcg/actuation 2 puff inhalation Q6H PRN Wheezing 06/29/23 09/17/23 History aerosol inhaler escitalopram oxalate 10 mg tablet 10 mg PO DAILY 06/29/23 09/17/23 History nirmatrelvir 300 mg (150 mg See Rx Instructions PO .COMPLEX 06/29/23 09/17/23 Rx x2)-ritonavir 100 mg tablet,dose #30 tabs pack (Paxlovid) Past Med/Surg History Medical History (Updated 09/17/23 @ 16:36 by Sam Rea DO) Left ureteral stone Stress fracture of left foot Lymphedema of right upper extremity Breast cancer Chronic UTI Surgical History (Updated 09/18/23 @ 06:05 by Beatrice Martínez RN) History of cholecystectomy History of lumpectomy of right breast Hx of lumpectomy S/P D&C (status post dilation and curettage) Family History Mother Hypertension Father Hypertension Grandmother (Maternal) Diabetes Heart disease Social History Smoking Status: Never smoker Second Hand Exposure: No; Do You Dip or Chew Tobacco: No; Hx Alcohol Use: Yes Alcohol type: wine Hx Substance Use: No Preferred Language: Georgian Communication Ability: Effective Visual Impairment: No Limitations Legislative Analyst Required: No Beliefs That Will Affect Care: None Current Living Situation: Spouse Other Information That Helps Us Care for You: No Feels Safe at Home: Yes Safety Concerns: Feels Safe At This Time Assistive Devices: None Review of Systems Review of Systems: As per HPI Physical Exam Constitutional: NAD, vitals WNL. Eyes: PERRLA. Conjunctivae normal. Respiratory: CTA bilaterally. Non labored breathing. No rhonchi, wheezing, or crackles. Cardiovascular: RRR. No murmurs noted. No LE edema. Musculoskeletal: Pain upon palpation of lumbar spine and bilateral SI joints. 5/5 strength with plantar and dorsiflexion. Skin: No rashes or skin lesions noted. Neurologic: Sensation grossly intact. No FND appreciated. Psychiatric: Speech of normal pace and content. Mood and affect congruent. Results & Data Results & Data Vital Signs (Past 12 Hours) Vital Signs Temp Pulse Pulse Resp BP BP Pulse Ox 09/17/23 11:14 100 09/17/23 10:39 92 H 18 138/71 99 09/17/23 09:55 73 09/17/23 09:36 36.6 C 74 18 107/66 99 O2 Del Method 09/17/23 11:14 Room Air 09/17/23 10:39 Room Air 09/17/23 09:55 09/17/23 09:36 Supervising Physician Co-Signing Physician Notes I personally saw and examined the patient. I verified all bailey points and agree with resident physician Dr Marianne Ren, with the following exceptions and/or additions: 58 year old female presents to the ER with acute on chronic back pain. Multiple course of steroids with mild improvement each time. No radicular symptoms. Significant paraspinal muscle spasms. O/E HS RRR, no murmurs, Chest CTAB, Abdo SNT, central and paraspinal tenderness over L spine, no lower extremity weakness or sensation loss. A/P Multiple lumbar compression fracture with subsequent muscle spasm - possible concern for metastatic disease given history of breast cancer although MRI was ideal with and without contrast and does not appear metastatic per Dr Jack. Will get a bone scan tomorrow to make sure. She has osteopenia per DEXA in 2021 with T -1.9 L1-L4. Ideally we would start a bisphosphonate but she has already been on Prolia and withdrawal compression fractures is a known complication of this therefore will consult rheumatology for further advice regarding this. Flexeril has not been helpful outpatient for the muscle spasms therefore will avoid. If we can stop the continued compression fractures then the muscle spasms will eventually resolve. Vitamin D level with AM labs. Consult ortho spine to consider vertebroplasty. Consult pain management for ongoing advice +/- trigger point injection. Resident Activity Tracking Resident Involvement: Resident Care Provided Care Provided: Adult [facility] (5) Systemic lupus erythematosus Systemic lupus erythematosus organ involvement: other Systemic lupus erythematosus type: other Qualified Code(s): M32.19 - Other organ or system involvement in systemic lupus erythematosus
[2023-09-17] MEDS: ACETAMINOPHEN 325 MG TAB PO SCH ×2 (14:17→20:09)
[2023-09-17] MEDS: HYDROmorphone INJ 0.5 MG/0.5 ML SYR IV PRN (20:13)
[2023-09-17] MEDS: IBUPROFEN 800 MG TAB PO SCH (20:36)
[2023-09-18] MEDS: HYDROmorphone INJ 0.5 MG/0.5 ML SYR IV PRN ×4 (01:21→15:17)
[2023-09-18] MEDS: ACETAMINOPHEN 325 MG TAB PO SCH ×4 (01:22→20:42)
[2023-09-18] MEDS: IBUPROFEN 800 MG TAB PO SCH ×3 (05:56→20:42)
--- NOTE | 2023-09-18 07:31 | Billing Data ---
Date of Service September 17, 2023 Coding Level of Care Code 91433 INT INP/OBS CARE
[2023-09-18] MEDS: ASPIRIN 81 MG ECTAB PO SCH (08:16)
[2023-09-18] MEDS: CHOLECALCIFEROL 1,000 UNITS 25 MCG TAB PO SCH (08:16)
[2023-09-18] MEDS: LETROZOLE 2.5 MG TAB PO SCH (08:16)
[2023-09-18] MEDS: ESCITALOPRAM OXALATE 10 MG TAB PO SCH (08:16)
[2023-09-18] MEDS ORDERED: HYDROCODONE/ACETAMOPHEN 5/325MG TAB PO PRN (08:24)
--- NOTE | 2023-09-18 08:30 | Pain Management Consultation ---
Date of Consultation September 18, 2023 Assessment & Plan (1) Lumbar compression fracture: Encounter type: initial encounter Lumbar vertebra fracture level: unspecified lumbar vertebra Qualified Code(s): S32.000A - Wedge compression fracture of unspecified lumbar vertebra, initial encounter for closed fracture Plan 1. Orthotics consulted for LSO back brace 2. Baclofen ordered 10mg BID for myofascial spasm 3. Hydrocodone 5/325mg ordered x 6 hours if needed for moderate pain 4. Lidocaine 5% patch ordered to be applied onto the low back for pain relief 5. Continue Tylenol/Ibuprofen for mild pain and Dilaudid IV PRN severe pain 6. Nothing to offer interventionally at this time. Thank you for the consultation. Please contact with any questions or concerns. History of Present Illness Reason for Consultation: Back pain Attending Physician: Alhaji Durham MD History of Present Illness Mrs. Arroyo is a 58-year-old female that has been seen in consultation at the [facility] for back pain. She has been doing extra heavy lifting recently and reports increased back pain and found to have mild endplate compression fractures from T12-L5. She has been having back pain over the last several months and has been evaluated by Dr. Almaraz's office and diagnosed with a lumbar compression fracture. After the diagnosis of the compression fracture she was placed on a short course of oral steroids which provided some pain relief for the short-term. Patient states that the pain is the worst and along the lumbosacral junction and is aggravated with positional changes, standing, walking. She will experience a spasming sensation shooting up to the shoulder blades. She denies any radicular symptoms down the legs. Patient has been admitted to evaluate for possible metastatic disease given history of breast cancer. No bowel/bladder incontinence, saddle anesthesia, foot drop, leg weakness, falls. Case discussed with Dr. Sherlyn Richardson Allergies Allergy/AdvReac Type Severity Reaction Status Date / Time codeine Allergy Hives Unverified 04/25/22 14:33 Sulfa (Sulfonamide AdvReac Headache Unverified 04/25/22 14:33 Antibiotics) Home Medications Medication Instructions Recorded Confirmed Type aspirin 81 mg tablet,delayed 81 mg PO DAILY 01/16/20 09/17/23 History release cholecalciferol (vitamin D3) 25 1,000 unit PO DAILY 01/16/20 09/17/23 History mcg (1,000 unit) tablet (Vitamin D3) letrozole 2.5 mg tablet 2.5 mg PO DAILY 01/16/20 09/17/23 History ibuprofen 800 mg tablet 800 mg PO TID PRN pain #14 tabs 01/18/20 09/17/23 Rx acetaminophen 500 mg tablet 1,000 mg PO DAILY PRN Pain 06/29/23 09/17/23 History albuterol sulfate 90 mcg/actuation 2 puff inhalation Q6H PRN Wheezing 06/29/23 09/17/23 History aerosol inhaler escitalopram oxalate 10 mg tablet 10 mg PO DAILY 06/29/23 09/17/23 History nirmatrelvir 300 mg (150 mg See Rx Instructions PO .COMPLEX 06/29/23 09/17/23 Rx x2)-ritonavir 100 mg tablet,dose #30 tabs pack (Paxlovid) Pain History Pain Location Full Body Front + Back: 2 1. 2. 3. Patient History Medical History Left ureteral stone Stress fracture of left foot Lymphedema of right upper extremity Breast cancer Chronic UTI Surgical History History of cholecystectomy History of lumpectomy of right breast Hx of lumpectomy S/P D&C (status post dilation and curettage) Family History Mother Hypertension Father Hypertension Grandmother (Maternal) Diabetes Heart disease Social History Smoking Status: Never smoker Second Hand Exposure: No; Do You Dip or Chew Tobacco: No; Hx Alcohol Use: Yes Alcohol type: wine Hx Substance Use: No Preferred Language: Yi Communication Ability: Effective Visual Impairment: No Limitations Medical Nurse Required: No Beliefs That Will Affect Care: None Current Living Situation: Spouse Other Information That Helps Us Care for You: No Feels Safe at Home: Yes Safety Concerns: Feels Safe At This Time Assistive Devices: None Physical Exam 2 Physical Exam: GENERAL: This is a pleasant 58 year old female that does not appear in any acute distress. HEAD/FACE: Normocephalic and atraumatic. EYES: No drainage or conjunctival injection. ENT: Nose without bleeding or discharge. Oral mucosa moist. NECK: Full ROM without apparent pain. No swelling or masses noted. RESPIRATORY: Patient with unlabored breathing. No signs of respiratory distress. CHEST/AXILLA: Chest movement symmetrical. No deformities noted. ABDOMEN/GI: No distension BACK: Moving slowly and guarded. There is diffuse lumbosacral tenderness with mild myofascial spasm of the surrounding paravertebral musculature. SKIN: [place], warm and dry. No rash noted. MS/EXTREMITY: No swelling, no deformities. Moving extremities appropriately. NEURO: Alert and appears oriented. Speech is fluent. Cranial Nerves are grossly intact. PSYCH: Alert, pleasant, affect is calm Results (Pain Clinic) Diagnostic Review MRI Findings: LUMBAR SPINE MRI WITH AND WITHOUT CONTRAST HISTORY: lumbar pain, comp fx, hx of breast CA TECHNIQUE: Multiplanar multisequence MRI of the lumbar spine was performed both before and after the intravenous administration of contrast. COMPARISON: Abdomen and pelvis CT 04/26/2020. FINDINGS: For the purpose of the report the L5-S1 disc space will be located on axial image 27 of 30. Mild endplate edema throughout the lumbar spine and the T12 vertebral body. There are mild superior endplate compression fractures from L1 through L5 demonstrating up to 15% loss of height at the L3 level. No significant retropulsion. Therefore, these are consistent with subacute compression fractures. There is also mild subacute superior and inferior endplate compression fractures at T12 demonstrating up to 10% loss of height. The visualized sacrum is intact. No subluxation. Mild disc space narrowing at L1-L2 and L3-L4. The remaining disc spaces are preserved. The conus terminates at the L1-L2 disc space level. Minimal paravertebral edema at the T12-L1 level. No fractures within the posterior elements. No epidural fluid collections identified. Endplate enhancement within T12 and throughout the lumbar spine likely corresponds to the subacute fractures. Partially visualized 7 mm T2 hyperintense nonenhancing lesion within the right kidney. This favors a cyst. L1-L2: Small broad-based posterior disc osteophyte complex with a 3 mm left paracentral/foraminal focal disc protrusion. This disc protrusion slightly displaces the transiting left L3 nerve roots. However, no significant central canal or neural foraminal narrowing. L2-L3: Small broad-based posterior disc bulge without significant central canal or neural foraminal narrowing. L3-L4: There is a broad-based posterior disc bulge with a 5 mm right paracentral focal disc protrusion. This abuts and displaces the transiting right L4 nerve roots and results in moderate narrowing of the right lateral recess. However, no significant central canal narrowing. L4-L5: Small broad-based posterior disc bulge without significant central canal or neural foraminal narrowing. L5-S1: No significant central canal or neural foraminal narrowing. IMPRESSION: 1. Mild endplate compression fractures from T12 through L5 as described above. These are likely subacute. No significant retropulsion. 2. There is a 5 mm right paracentral focal disc protrusion at L3-L4 which abuts and displaces the transiting right L4 nerve roots. 3. There is a 3 mm left paracentral focal disc protrusion at L1-L2 with slightly displaces the transiting left L2 nerve roots. 4. No significant central canal narrowing. ACT 112: Negative or not required by law. Electronically signed by: Danny Jack M.D. 09/17/2023 12:40 PM
--- NOTE | 2023-09-18 09:42 | Consultation ---
Date of Consultation September 18, 2023 Assessment & Plan (1) Lumbar compression fracture: Nayely has multiple subacute thoracic and lumbar fractures. These are nontraumatic. There is concern that this is metastatic disease. Work-up is being pursued. Dr. Almaraz has reviewed current imaging including recent lumbar MRI. Treatment is conservative right now. Ambulate ad sylvia. I have ordered a TLSO brace to be worn when standing and ambulating only. May remove when sleeping and in a seated position. No lifting over 5 pounds. Would recommend a walker for when she goes home. Bone scan is pending. She has a follow-up appointment next week in our office. I have encouraged her to keep this appoi ntment. History of Present Illness Attending Physician: Alhaji Biswas MD History of Present Illness Is a pleasant 58-year-old female that was seen in our office recently for lower back pain. She states symptoms started at the end of July when she and her family members were moving her father out of his home and to an assisted living facility. This required multiple trips and moving furniture. No specific accident, trauma, fall. Symptoms are in his alert her lower back. She has no radicular leg pain, paresthesia, numbness or tingling. She has been Amling independently. She was given a Medrol Dosepak at her appointment recently in our office which helped modestly. Denies bowel or bladder dysfunction. Pain is most severe when changing positions or when walking. She is most comfortable in a seated or supine position. She also has a history of breast cancer in 2015. Has lymphedema affecting her right upper extremity which she wears a compression sleeve for. Pain management has also been consulted this morning given medication recommendations. Allergies Allergy/AdvReac Type Severity Reaction Status Date / Time codeine Allergy Hives Unverified 04/25/22 14:33 Sulfa (Sulfonamide AdvReac Headache Unverified 04/25/22 14:33 Antibiotics) Home Medications Medication Instructions Recorded Confirmed Type aspirin 81 mg tablet,delayed 81 mg PO DAILY 01/16/20 09/17/23 History release cholecalciferol (vitamin D3) 25 1,000 unit PO DAILY 01/16/20 09/17/23 History mcg (1,000 unit) tablet (Vitamin D3) letrozole 2.5 mg tablet 2.5 mg PO DAILY 01/16/20 09/17/23 History ibuprofen 800 mg tablet 800 mg PO TID PRN pain #14 tabs 01/18/20 09/17/23 Rx acetaminophen 500 mg tablet 1,000 mg PO DAILY PRN Pain 06/29/23 09/17/23 History albuterol sulfate 90 mcg/actuation 2 puff inhalation Q6H PRN Wheezing 06/29/23 09/17/23 History aerosol inhaler escitalopram oxalate 10 mg tablet 10 mg PO DAILY 06/29/23 09/17/23 History nirmatrelvir 300 mg (150 mg See Rx Instructions PO .COMPLEX 06/29/23 09/17/23 Rx x2)-ritonavir 100 mg tablet,dose #30 tabs pack (Paxlovid) Patient History Medical History Left ureteral stone Stress fracture of left foot Lymphedema of right upper extremity Breast cancer Chronic UTI Surgical History History of cholecystectomy History of lumpectomy of right breast Hx of lumpectomy S/P D&C (status post dilation and curettage) Family History Mother Hypertension Father Hypertension Grandmother (Maternal) Diabetes Heart disease Social History Smoking Status: Never smoker Second Hand Exposure: No; Do You Dip or Chew Tobacco: No; Hx Alcohol Use: Yes Alcohol type: wine Hx Substance Use: No Preferred Language: Setswana Communication Ability: Effective Visual Impairment: No Limitations P[employer] Required: No Beliefs That Will Affect Care: None Current Living Situation: Spouse Other Information That Helps Us Care for You: No Feels Safe at Home: Yes Safety Concerns: Feels Safe At This Time Assistive Devices: None Review of Systems Review of Systems: All systems reviewed & are unremarkable except as noted in HPI & below Physical Exam Physical Exam: She is up and ambulatory from the restroom when I entered the room with the assistance of a walker. Mild distress only Alert and oriented x3 she is tender to push on the midline lower thoracic and lumbar region Nontender over the sciatic notch regions. Strength is 5/5 bilateral lower extremities Results & Data Vital Signs (Past 12 Hours) Vital Signs Temp Pulse Resp BP Pulse Ox O2 Del Method 09/18/23 07:46 36.8 C 66 16 129/77 96 Room Air Diagnostic Findings [place], [place] [phone] Magnetic Resonance Report Patient: NAYELY DUKES Admit Date: 09/17/23 MR#: [id number] Address1: [facility] MARCIO MONIQUE Acct ID:[id number] Address2: Date: 1965 [facility] Zip: [place] [address] Age: 58 Location: ED Sex: F Room/Bed: Att Phy: Diagnosis: FRACTURE IN SPINE,BACK PAIN Trista Phy: Lincoln Neely M.D. Service Date: 09/17/23 Fam Phy: Lincoln Gonzáles MD Interpreting Phy: Danny Jack MDAdmit Phy: Ordering Phy: Sam Rea DO cc: ~ LUMBAR SPINE MRI WITH AND WITHOUT CONTRAST HISTORY: lumbar pain, comp fx, hx of breast CA TECHNIQUE: Multiplanar multisequence MRI of the lumbar spine was performed both before and after the intravenous administration of contrast. COMPARISON: Abdomen and pelvis CT 04/26/2020. FINDINGS: For the purpose of the report the L5-S1 disc space will be located on axial image 27 of 30. Mild endplate edema throughout the lumbar spine and the T12 vertebral body. There are mild superior endplate compression fractures from L1 through L5 demonstrating up to 15% loss of height at the L3 level. No significant retropulsion. Therefore, these are consistent with subacute compression fractures. There is also mild subacute superior and inferior endplate compression fractures at T12 demonstrating up to 10% loss of height. The visualized sacrum is intact. No subluxation. Mild disc space narrowing at L1-L2 and L3-L4. The remaining disc spaces are preserved. The conus terminates at the L1-L2 disc space level. Minimal paravertebral edema at the T12-L1 level. No fractures within the posterior elements. No epidural fluid collections identified. Endplate enhancement within T12 and throughout the lumbar spine likely corresponds to the subacute fractures. Partially visualized 7 mm T2 hyperintense nonenhancing lesion within the right kidney. This favors a cyst. L1-L2: Small broad-based posterior disc osteophyte complex with a 3 mm left paracentral/foraminal focal disc protrusion. This disc protrusion slightly di splaces the transiting left L3 nerve roots. However, no significant central canal or neural foraminal narrowing. L2-L3: Small broad-based posterior disc bulge without significant central canal or neural foraminal narrowing. L3-L4: There is a broad-based posterior disc bulge with a 5 mm right paracentral focal disc protrusion. This abuts and displaces the transiting right L4 nerve roots and results in moderate narrowing of the right lateral recess. However, no significant central canal narrowing. L4-L5: Small broad-based posterior disc bulge without significant central canal or neural foraminal narrowing. L5-S1: No significant central canal or neural foraminal narrowing. IMPRESSION: 1. Mild endplate compression fractures from T12 through L5 as described above. These are likely subacute. No significant retropulsion. 2. There is a 5 mm right paracentral focal disc protrusion at L3-L4 which abuts and displaces the transiting right L4 nerve roots. 3. There is a 3 mm left paracentral focal disc protrusion at L1-L2 with slightly displaces the transiting left L2 nerve roots. 4. No significant central canal narrowing. ACT 112: Negative or not required by law. Electronically signed by: Danny Jack M.D. 09/17/2023 12:40 PM Dictated: 09/17/23 1230 Transcribed: 09/17/23 1230 (1) Lumbar compression fracture Encounter type: initial encounter Lumbar vertebra fracture level: unspecified lumbar vertebra Qualified Code(s): S32.000A - Wedge compression fracture of unspecified lumbar vertebra, initial encounter for closed fracture
[2023-09-18] MEDS: BACLOFEN 10 MG TAB PO SCH ×2 (10:00→20:42)
[2023-09-18] MEDS: LIDOCAINE 5% 1 PATCH TD SCH (10:00)
--- NOTE | 2023-09-18 11:17 | Nuclear Medicine Report ---
NM bone scan whole body HISTORY: 58 years-old Female Hx breast cancer, vertebral compression fracture COMPARISON: Lumbar spine MRI 09/17/2023 TECHNIQUE: Anterior and posterior whole body planar scintigraphic bone scan images were obtained foll owing the intravenous administration of 26.0 mCi technetium 99 MDP administered via the left upper ca vity. FINDINGS: Physiologic tracer activity within the kidneys, urinary bladder and soft tissues. Mild multifocal deg enerative uptake noted throughout the appendicular skeletal system. Increased tracer uptake at T12-L5 is noted, most pronounced at the L1 and L5 levels. No suspicious tracer uptake identified. IMPRESSION: 1. Increased tracer uptake related to the subacute appearing T12-L5 compression deformities described on yesterday's MRI lumbar spine. 2. No definite scintigraphic evidence of skeletal metastasis. ACT 112: Negative or not required by law. The above report was generated using voice recognition software. It may contain grammatical, syntax o r spelling errors. Electronically signed by: Live Adhikari M.D. 09/18/2023 11:16 AM
[2023-09-18] MEDS: POLYETHYLENE (MIRALAX) 17 GM PACK PO SCH (12:23)
[2023-09-18] MEDS: SENNA 8.6 MG TAB PO SCH (15:17)
--- NOTE | 2023-09-18 20:38 | Hospitalist Progress Note ---
Date of Service September 18, 2023 Assessment & Plan (1) Lumbar compression fracture: Plan: T12 thru L5 bone scan and MRI l-spine NEGATIVE for findings suggestive of bony mets from breast ca pain remains severe appreciate pain management and ortho spine consults with recs cont norco prn baclofen BID dilaudid IV prn motrin TID tylenol scheduled lidoderms consider k-pad bowel regimen discussed nature of compression fractures, goals of care, etc (2) Lumbar disc herniation: Plan: seen on MRI l-spine thus far no symptoms from such no radicular pain (3) History of breast cancer: Plan: noted s/p lumpectomy R chronic R arm lymphedema from such no metastatic bony disease on bone scan today (4) Microscopic hematuria: (5) Systemic lupus erythematosus: Plan: followed by out of town rheumatology not on any chronic meds for such at this time Plan dvt proph - add lovenox daily Admission and Anticipated Discharge Date Admission Date: September 17, 2023 Subjective patient still with severe midline lower back pain no radiation to buttocks or legs no numbness/radicular symptoms either leg no bowel or bladder incontinence she is constipated - no BM in several days dilaudid IV is helping - "only thing that is helping so far" she does not take chronic opiates outside the hospital Review of Systems Review of Systems: gen - no fevers cv - no orthopnea/ cp pulm - no dyspnea GI - no abd pain Physical Exam Physical Exam: gen - NAD, but with movement she has pain mouth - MMM neck - no JVD heart - RRR, s1 s2 lungs - cta b/l abd - soft NT ND BS+ ext - no edema, pulses 2+ b/l neuro - strength 5/5 hip flexion b/l and distal strength 5/5 b/l Results & Data Results & Data Vital Signs (Past 12 Hours) Vital Signs Temp Pulse Resp BP Pulse Ox O2 Del Method 09/18/23 15:09 36.6 C 65 16 118/78 95 Room Air Laboratory Results Laboratory Results 09/18/23 05:40 25-OH Vitamin D Total 76.5 PG Care Time/CCT Total # of Minutes Spent Total Time Spent with Patient: Total time spent is greater than 50% in coordination of care (as documented) at patient's floor/unit and/or counseling patient: Coding Level of Care Code 86745 SUB INP/OBS CARE 2/35MIN Diagnoses Compression fracture of lumbar vertebra, unspecified lumbar vertebral level, initial encounter S32.000A Encounter type: initial encounter Lumbar vertebra fracture level: unspecified lumbar vertebra Lumbar disc herniation M51.26 History of breast cancer Z85.3 Microscopic hematuria R31.29 Other systemic lupus erythematosus with other organ involvement M32.19 Systemic lupus erythematosus organ involvement: other Systemic lupus erythematosus type: other (1) Lumbar compression fracture Encounter type: initial encounter Lumbar vertebra fracture level: unspecified lumbar vertebra Qualified Code(s): S32.000A - Wedge compression fracture of unspecified lumbar vertebra, initial encounter for closed fracture (5) Systemic lupus erythematosus Systemic lupus erythematosus organ involvement: other Systemic lupus erythematosus type: other Qualified Code(s): M32.19 - Other organ or system in volvement in systemic lupus erythematosus
[2023-09-18] MEDS: HYDROCODONE/ACETAMINOPHEN 7.5/325MG TAB PO PRN (20:41)
[2023-09-19] MEDS: IBUPROFEN 800 MG TAB PO SCH ×2 (03:14→12:34)
[2023-09-19] MEDS: ACETAMINOPHEN 325 MG TAB PO SCH ×4 (03:14→20:10)
[2023-09-19] MEDS: HYDROCODONE/ACETAMINOPHEN 7.5/325MG TAB PO PRN ×2 (05:31→12:38)
[2023-09-19] MEDS: LETROZOLE 2.5 MG TAB PO SCH (07:23)
[2023-09-19] MEDS: ESCITALOPRAM OXALATE 10 MG TAB PO SCH (07:23)
[2023-09-19] MEDS: ASPIRIN 81 MG ECTAB PO SCH (07:23)
[2023-09-19] MEDS: CHOLECALCIFEROL 1,000 UNITS 25 MCG TAB PO SCH (07:23)
[2023-09-19] MEDS: SENNA 8.6 MG TAB PO SCH (07:24)
[2023-09-19] MEDS: POLYETHYLENE (MIRALAX) 17 GM PACK PO SCH ×2 (07:24→20:10)
[2023-09-19] MEDS: LIDOCAINE 5% 1 PATCH TD SCH (07:24)
[2023-09-19] MEDS: HYDROmorphone INJ 0.5 MG/0.5 ML SYR IV PRN ×3 (07:25→21:44)
[2023-09-19] MEDS: BACLOFEN 10 MG TAB PO SCH ×2 (07:30→20:09)
[2023-09-19] MEDS ORDERED: ENOXAPARIN INJ 40 MG/0.4 ML SYR SQ ONE (14:59)
[2023-09-19] MEDS: TAPENTADOL HCL 50 MG TAB PO PRN (18:47)
--- NOTE | 2023-09-19 20:29 | Hospitalist Progress Note ---
Date of Service September 19, 2023 Assessment & Plan (1) Lumbar compression fracture: Plan: T12 thru L5 bone scan and MRI l-spine NEGATIVE for findings suggestive of bony mets from breast ca pain remains severe despite complex regimen of meds appreciate pain management and ortho spine consults with recs wilfrido has not been helpful thus will stop it baclofen 10mg BID likely contributing to sedation - lower to 5mg BID dilaudid IV prn - space to q4h dosing due to sedation motrin TID - not helpful, has h/o GI issues - will stop tylenol scheduled - continue lidoderms - continue corresponded with pain management - will trial her on nucynta IR q4h prn in [place] will see how she does overnight PT, OT when able TLSO brace when walking (2) Lumbar disc herniation: Plan: seen on MRI l-spine thus far no symptoms from such no radicular pain (3) History of breast cancer: Plan: noted s/p lumpectomy R chronic R arm lymphedema from such no metastatic bony disease on bone scan (4) Microscopic hematuria: (5) Systemic lupus erythematosus: Plan: followed by out of town rheumatology not on any chronic meds for such at this time Plan dvt proph - lovenox 40mg daily bowel regimen - increase miralax to BID dosing; cont senna updated at bedside Admission and Anticipated Discharge Date Admission Date: September 19, 2023 Subjective continues with severe back pain only able to ambulate to bathroom pain is in same location -- lumbar spine/midline of low back no radicular symptoms some muscle spasms at times and occasionally some pains in her thighs no bowel movement yet eating fair she feels very tired and spacey from all of the meds Review of Systems Review of Systems: cv - no orthopnea/pain pulm - no dyspnea GI - no nausea/emesis Physical Exam Physical Exam: gen - NAD; groggy but able to answer questions mouth - MMM neck - no JVD heart - RRR, s1 s2, no murmur lungs - cta b/l abd - soft NT ND BS+ ext - no edema, pulses 2+ b/l neuro - strength 5/5 hip flexion b/l and distal strength 5/5 b/l psych - remains oriented x 3 despite feeling sleepy Results & Data Results & Data Vital Signs (Past 12 Hours) Vital Signs Temp Pulse Resp BP Pulse Ox O2 Del Method 09/19/23 20:13 36.5 C 64 16 111/71 96 Room Air 09/19/23 14:21 36.7 C 68 16 117/68 95 Room Air PG Care Time/CCT Total # of Minutes Spent Total Time Spent with Patient: Total time spent is greater than 50% in coordination of care (as documented) at patient's floor/unit and/or counseling patient: Coding Level of Care Code 28742 SUB INP/OBS CARE 2/35MIN Diagnoses Compression fracture of lumbar vertebra, unspecified lumbar vertebral level, initial encounter S32.000A Encounter type: initial encounter Lumbar vertebra fracture level: unspecified lumbar vertebra Lumbar disc herniation M51.26 History of breast cancer Z85.3 Microscopic hematuria R31.29 Other systemic lupus erythematosus with other organ involvement M32.19 Systemic lupus erythematosus organ involvement: other Systemic lupus erythematosus type: other (1) Lumbar compression fracture Encounter type: initial encounter Lumbar vertebra fracture level: unspecified lumbar vertebra Qualified Code(s): S32.000A - Wedge compression fracture of unspecified lumbar vertebra, initial encounter for closed fracture (5) Systemic lupus erythematosus Systemic lupus erythematosus organ involvement: other Systemic lupus erythematosus type: other Qualified Code(s): M32.19 - Other organ or system involvement in systemic lupus erythematosus
[2023-09-20] MEDS: ACETAMINOPHEN 325 MG TAB PO SCH ×4 (01:11→20:49)
[2023-09-20] MEDS: HYDROmorphone INJ 0.5 MG/0.5 ML SYR IV PRN ×3 (06:09→15:38)
[2023-09-20] MEDS: BACLOFEN 10 MG TAB PO SCH ×2 (08:05→20:50)
[2023-09-20] MEDS: SENNA 8.6 MG TAB PO SCH (08:05)
[2023-09-20] MEDS: LIDOCAINE 5% 1 PATCH TD SCH (08:06)
[2023-09-20] MEDS: CHOLECALCIFEROL 1,000 UNITS 25 MCG TAB PO SCH (08:06)
[2023-09-20] MEDS: LETROZOLE 2.5 MG TAB PO SCH (08:06)
[2023-09-20] MEDS: ESCITALOPRAM OXALATE 10 MG TAB PO SCH (08:07)
[2023-09-20] MEDS: POLYETHYLENE (MIRALAX) 17 GM PACK PO SCH ×2 (08:07→20:49)
[2023-09-20] MEDS: ENOXAPARIN INJ 40 MG/0.4 ML SYR SQ SCH (08:08)
[2023-09-20] MEDS: ASPIRIN 81 MG ECTAB PO SCH (08:08)
[2023-09-20] MEDS: TAPENTADOL HCL 50 MG TAB PO PRN (14:08)
[2023-09-20] MEDS ORDERED: TAPENTADOL HCL ER 50 MG TABCR PO ONE (15:04)
--- NOTE | 2023-09-20 15:04 | Hospitalist Progress Note ---
Date of Service September 20, 2023 Assessment & Plan (1) Lumbar compression fracture: Plan: T12 thru L5 bone scan and MRI l-spine NEGATIVE for findings suggestive of bony mets from breast ca pain remains severe despite complex regimen of meds appreciate pain management and ortho spine consults with recs plan - trial of nucynta ER 50mg BID cont nucynta IR prn cont dilaudid prn cont baclofen 5mg BID tylenol scheduled - continue lidoderms - continue cont PT, OT TLSO brace when walking (2) Lumbar disc herniation: Plan: seen on MRI l-spine thus far no symptoms from such although left lateral leg pain theoretically could be from nerve pain consider trial of IV steroids for #1, #2 while here if pain remains refractory (3) History of breast cancer: Plan: noted s/p lumpectomy R chronic R arm lymphedema from such no metastatic bony disease on bone scan (4) Microscopic hematuria: (5) Systemic lupus erythematosus: Plan: followed by out of town rheumatology not on any chronic meds for such at this time (6) Exposure to COVID-19 virus: Plan: 2 hour exposure to her father who tested + this am patient placed in single room COVID test on pt today neg retest in 5 days if no symptoms retest sooner if any signs/symptoms of COVID Plan dvt proph - lovenox 40mg daily bowel regimen - cont miralax BID dosing; cont senna if no BM by tonight/tomorrow --> dulcolax suppos repeat labs am Admission and Anticipated Discharge Date Admission Date: September 19, 2023 Subjective continues with severe pain in lumbar spine region and some pain in the lateral left thigh pain is constant - only relieved for 1-2 hours with dilaudid IV - then pain returns did walk with therapy today with TLSO brace in place - very painful still no BM lower baclofen dose is helping her spasms/pain without causing sedation finally, her father came to visit her yesterday in her room was present for 2 hours this am he awoke "feeling terrible"; tested + for COVID Review of Systems Review of Systems: HENT - no URI symptoms gen - no fevers or chills pulm - no cough or congestion GI - ongoing constipation neuro - no numbness, tingling, shock like pain, or neuropathic pain of either leg Physical Exam Physical Exam: gen - NAD; no grogginess today mouth - MMM neck - no JVD heart - RRR, s1 s2, no murmur lungs - cta b/l abd - soft NT ND BS+ ext - no edema, pulses 2+ b/l neuro - strength 5/5 hip flexion b/l and distal strength 5/5 b/l psych - remains oriented x 3 Results & Data Results & Data Vital Signs (Past 12 Hours) Vital Signs Temp Pulse Resp BP Pulse Ox O2 Del Method 09/20/23 08:00 36.6 C 62 14 128/72 94 Room Air PG Care Time/CCT Total # of Minutes Spent Total Time Spent with Patient: Total time spent is greater than 50% in coordination of care (as documented) at patient's floor/unit and/or counseling patient: Coding Level of Care Code 15498 SUB INP/OBS CARE 2/35MIN Diagnoses Compression fracture of lumbar vertebra, unspecified lumbar vertebral level, initial encounter S32.000A Encounter type: initial encounter Lumbar vertebra fracture level: unspecified lumbar vertebra Lumbar disc herniation M51.26 History of breast cancer Z85.3 Microscopic hematuria R31.29 Other systemic lupus erythematosus with other organ involvement M32.19 Systemic lupus erythematosus organ involvement: other Systemic lupus erythematosus type: other Exposure to COVID-19 virus Z20.822 (1) Lumbar compression fracture Encounter type: initial encounter Lumbar vertebra fracture level: unspecified lumbar vertebra Qualified Code(s): S32.000A - Wedge compression fracture of unspecified lumbar vertebra, initial encounter for closed fracture (5) Systemic lupus erythematosus Systemic lupus erythematosus organ involvement: other Systemic lupus erythematosus type: other Qualified Code(s): M32.19 - Other organ or system involvement in systemic lupus erythematosus
[2023-09-20] MEDS: DICLOFENAC SOD 1% GEL 100 GM TUBE EXT SCH ×2 (16:16→20:51)
[2023-09-21] MEDS: TAPENTADOL HCL 50 MG TAB PO PRN ×2 (05:31→10:50)
[2023-09-21] MEDS: ACETAMINOPHEN 325 MG TAB PO SCH ×4 (06:17→19:57)
[2023-09-21 08:27] LABS: BUN Creatinine Ratio 24.6 (10-20); Calcium 10.5 mg/dl (8.6-10.3); Creatinine Clr Calc Pharmacy 78.6 ml/min; Est GFR (African American) 109.7 ml/min; Est GFR (Non-African American) 94.6 ml/min
[2023-09-21] MEDS: BACLOFEN 10 MG TAB PO SCH ×2 (09:33→20:01)
[2023-09-21] MEDS: ASPIRIN 81 MG ECTAB PO SCH (09:34)
[2023-09-21] MEDS: ESCITALOPRAM OXALATE 10 MG TAB PO SCH (09:34)
[2023-09-21] MEDS: bisacodyL 10 MG SUPP PR SCH ×2 (09:34→13:39)
[2023-09-21] MEDS: LETROZOLE 2.5 MG TAB PO SCH (09:35)
[2023-09-21] MEDS: ENOXAPARIN INJ 40 MG/0.4 ML SYR SQ SCH (09:35)
[2023-09-21] MEDS: DICLOFENAC SOD 1% GEL 100 GM TUBE EXT SCH ×4 (09:35→20:00)
[2023-09-21] MEDS: LIDOCAINE 5% 1 PATCH TD SCH (09:36)
[2023-09-21] MEDS: POLYETHYLENE (MIRALAX) 17 GM PACK PO SCH ×2 (09:36→19:58)
[2023-09-21] MEDS: SENNA 8.6 MG TAB PO SCH (09:36)
[2023-09-21] MEDS: CHOLECALCIFEROL 1,000 UNITS 25 MCG TAB PO SCH (09:54)
[2023-09-21] MEDS: TAPENTADOL HCL ER 50 MG TABCR PO SCH ×2 (10:59→19:58)
--- NOTE | 2023-09-21 14:11 | Hospitalist Progress Note ---
Date of Service September 21, 2023 Assessment & Plan (1) Lumbar compression fracture: Plan: T12 thru L5 bone scan and MRI l-spine NEGATIVE for findings suggestive of bony mets from breast ca pain remains severe despite complex regimen of meds however she is ambulating and transferring independently - she could not do that a few days ago further, she has not needed IV dilaudid in 24 hours appreciate pain management and ortho spine consults with recs plan - cont nucynta ER 50mg BID cont nucynta IR prn cont dilaudid prn for refractory pain cont baclofen 5mg BID tylenol scheduled - continue lidoderms - continue cont PT, OT TLSO brace when walking adding dexamethasone 4mg IV q8h - this will help any inflammatory component of l-spine, and if she has bursitis of L hip, probably will help that as well if Left leg pain is radicular from her L1-L2 herniated disc which appears to be compromising the L3 nerve on left the steroids should help this re-eval tomorrow (2) Lumbar disc herniation: Plan: seen on MRI l-spine see #1 above trial of IV steroids as above (3) History of breast cancer: Plan: noted s/p lumpectomy R chronic R arm lymphedema from such no metastatic bony disease on bone scan (4) Microscopic hematuria: (5) Systemic lupus erythematosus: Plan: followed by out of town rheumatology not on any chronic meds for such at this time (6) Exposure to COVID-19 virus: Plan: 2 hour exposure to her father who tested + the AM of 09/20/23 patient placed in single room COVID test negative retest in 5 days if no symptoms retest sooner if any signs/symptoms of COVID (7) Hypercalcemia: Plan: 2nd immobility from her fractures?? simply repeat level in am hold vit D supplement (8) Trochanteric bursitis of left hip: Plan: suspected +/- IT band pain start steroids ice Plan dvt proph - lovenox 40mg daily bowel regimen - cont miralax BID dosing; cont senna updated at bedside Admission and Anticipated Discharge Date Admission Date: September 19, 2023 Subjective patient is independently transferring from bed to chair and bed to bathroom she still has severe pain, however, over l-spine in the midline and just to left of midline she is also now having lateral hip pain on left that is worst near the greater trochanter and travels inferiorly towards the knee no numbness, tingling, neuropathic pain, electric shocks, etc no pain below either knee she denies ANY COVID symptoms - no URI symptoms, cough, congestion, diarrhea, v omiting, etc finally had bowel movement early this am Review of Systems Review of Systems: gen - no fevers or chills cv - no chest pain pulm - no cough, no congestion GI - no nausea or emesis Physical Exam Physical Exam: gen - NAD; I watched her walk from bathroom to bed and she did fairly well -- slow, but steady walking mouth - MMM neck - no JVD heart - RRR, s1 s2, no murmur lungs - cta b/l abd - soft NT ND BS+ ext - no edema, pulses 2+ b/l neuro - strength 5/5 hip flexion b/l and distal strength 5/5 b/l musculo - very tender to palpation over the greater trochanter region on left; no pain with palpation of the mid-thigh or distal-thigh psych - remains oriented x 3 Results & Data Results & Data Vital Signs (Past 12 Hours) Vital Signs Temp Pulse Resp BP Pulse Ox O2 Del Method 09/21/23 07:16 36.6 C 68 16 120/77 95 Room Air Laboratory Results Laboratory Results 09/20/23 09/21/23 Unknown 07:25 Sodium 140 Potassium 4.0 Chloride 103 Carbon Dioxide 32 Anion Gap 5 BUN 17 Creatinine 0.69 Est Cr Clr Drug Dosing 78.6 Est GFR ( Amer) 109.7 Est GFR (Non-Af Amer) 94.6 BUN/Creatinine Ratio 24.6 H Glucose 87 Calcium 10.5 H SARS-CoV-2, RNA, NAAT NEGATIVE PG Care Time/CCT Total # of Minutes Spent Total Time Spent with Patient: Total time spent is greater than 50% in coordination of care (as documented) at patient's floor/unit and/or counseling patient: Coding Level of Care Code 18206 SUB INP/OBS CARE 235MIN Diagnoses Compression fracture of lumbar vertebra, unspecified lumbar vertebral level, initial encounter S32.000A Encounter type: initial encounter Lumbar vertebra fracture level: unspecified lumbar vertebra Lumbar disc herniation M51.26 History of breast cancer Z85.3 Microscopic hematuria R31.29 Other systemic lupus erythematosus with other organ involvement M32.19 Systemic lupus erythematosus organ involvement: other Systemic lupus erythematosus type: other Exposure to COVID-19 virus Z20.822 Hypercalcemia E83.52 Trochanteric bursitis of left hip M70.62 (1) Lumbar compression fracture Encounter type: initial encounter Lumbar vertebra fracture level: unspecified lumbar vertebra Qualified Code(s): S32.000A - Wedge compression fracture of unspecified lumbar vertebra, initial encounter for closed fracture (5) Systemic lupus erythematosus Systemic lupus erythematosus organ involvement: other Systemic lupus erythematosus type: other Qualified Code(s): M32.19 - Other organ or system involvement in systemic lupus erythematosus
[2023-09-21] MEDS: dexAMETHasone 4 MG in SYRINGE 0 ML IV SCH ×2 (15:08→19:59)
--- OUTSIDE RECORDS SUMMARY | 2023-09-21 20:04 | External Medical Summary | Continuity of Care Document ---
Author Name Unknown Organization [facility] [address] Address [address] [place], [place] [id number] Care Team Providers Care Washcloth Folder Name Role Phone Sam Clark Primary Care Physician [phone] [id number] Date(s): 09/05/23 - 09/05/23 [facility] [address] [facility] [address], [address] [place], [place] [phone] Encounter Diagnosis Wedge compression fracture of first lumbar vertebra, initial encounter for closed fracture(Final) - Discharge Disposition: Home or Self Care Attending Physician: DO Almaraz Gregory M Referring Physician: DO Almaraz Gregory M Allergies, Adverse Reactions, Alerts Substance Reaction Severity Status sulfa drugs 1 Confusion Active 1headache Medications aspirin Start: 03/28/20 14:17:00 EDT, 81 mg =, Daily Start Date: 03/28/20 Status: Ordered biotin Start: 04/01/20 12:59:00 EDT Start Date: 04/01/20 Status: Ordered escitalopram 5 mg oral tablet Start: 12/05/22 12:41:00 EST, See Instructions, Disp# 90 tab, Refills: 0, TAKE 1 TABLET BY MOUTH EVERY DAY, Pharmacy: [id number] Start Date: 12/05/22 Status: Ordered letrozole 2.5 mg oral tablet Start: 03/28/20 14:16:00 EDT, 1 tab, PO, Daily Start Date: 03/28/20 Status: Ordered Prolia Start: 03/28/20 14:17:00 EDT, See Instructions, Every 6 months Start Date: 03/28/20 Status: Ordered triamcinolone 0.1% topical cream Start: 06/27/22 16:26:00 EDT, 1 appl, topical, bid, Disp# 30 g, Refills: 2, Pharmacy: [facility]/pharmacy #[id number] Start Date: 06/27/22 Status: Ordered Vitamin D3 Start: 03/28/20 14:17:00 EDT, 5,000 Int_Unit =, Daily Start Date: 03/28/20 Status: Ordered Problem List Condition Confirmation Course Effective Dates Status Health St atus Informant Alopecia Confirmed Active Bereavement reaction Confirmed Active Depression Confirmed Active Breast CA Confirmed Active Osteopenia Confirmed Active SLE (systemic lupus erythematosus) Confirmed Active Procedures Procedure Date Related Diagnosis Body Site Status Kidney stone 01/2020 Completed Gall bladder 2016 Completed Lumpectomy 2014 Completed Lymph node 2014 Completed Results Laboratory List Name Date Blood Urea Nitrogen (BUN) 09/05/23 Creatinine Level (CREAT W/GFR (EST.)) Request to FAX Report (First Location) ( ACC NO TO BE FAXED) 09/05/23 Most recent to oldest [Reference Range]: 1 eGFR CKD-EPI [>60 mL/min/1.73 m2] 87 mL/ min/1.73 m2 1 (09/05/23 11:13 AM) Estimated CrCl 69.20 mL/min (09/05/23 11:50 AM) Phone No [phone] (09/05/23 11:13 AM) Faxed on: 09/06/23 08:39 (09/05/23 11:13 AM) BUN [7-20 mg/dL] 16 mg/dL 3 (09/05/23 11:13 AM) Cret [0.60-1.00 mg/dL] 0.78 mg/dL (09/05/23 11:13 AM) 1Result Comment: Testing Performed By: Dept of Pathology [facility] [address], [address] [place] [address], [place] [address] 2Result Comment: Testing Performed By: Dept of Pathology [facility] [address], [address] [place] [address], [place] [address] 3Result Comment: Testing Performed By: Dept of Pathology [facility] [address], [address] [place] [address], [place] [address] Social History Social History Type Response Smoking Status Never smoked cigaret amor Sex Female Patient Care team information Care Team Personnel Name: MD Clark Jeffrey G Position: Physician - Internal Med Member Role: Primary Care Provider Address: Address: [address] [place] [address] [address] [place] [address] Care Team Related Persons Name: MARTIN DUKES Address: [place] Address: home [address] [place], [place] [id number] Name: YAYA DUKES
[2023-09-22] MEDS: ACETAMINOPHEN 325 MG TAB PO SCH ×5 (02:04→22:31)
[2023-09-22] MEDS: dexAMETHasone 4 MG in SYRINGE 0 ML IV SCH ×3 (06:03→21:36)
[2023-09-22] MEDS: TAPENTADOL HCL 50 MG TAB PO PRN ×3 (06:17→18:32)
[2023-09-22 07:19] LABS: BUN Creatinine Ratio 31.4 (10-20); Calcium 10.8 mg/dl (8.6-10.3); Creatinine Clr Calc Pharmacy 77.5 ml/min; Est GFR (African American) 109.1 ml/min; Est GFR (Non-African American) 94.2 ml/min; Potassium 4.5 mmol/L (3.5-5.1)
[2023-09-22] MEDS: POLYETHYLENE (MIRALAX) 17 GM PACK PO SCH ×2 (07:45→20:38)
[2023-09-22] MEDS: LIDOCAINE 5% 1 PATCH TD SCH (07:45)
[2023-09-22] MEDS: DICLOFENAC SOD 1% GEL 100 GM TUBE EXT SCH ×4 (07:46→20:38)
[2023-09-22] MEDS: BACLOFEN 10 MG TAB PO SCH ×2 (07:54→20:47)
[2023-09-22] MEDS: ESCITALOPRAM OXALATE 10 MG TAB PO SCH (07:55)
[2023-09-22] MEDS: ENOXAPARIN INJ 40 MG/0.4 ML SYR SQ SCH (07:55)
[2023-09-22] MEDS: SENNA 8.6 MG TAB PO SCH (07:56)
[2023-09-22] MEDS: LETROZOLE 2.5 MG TAB PO SCH (07:56)
[2023-09-22] MEDS: ASPIRIN 81 MG ECTAB PO SCH (07:56)
[2023-09-22] MEDS: SODIUM CHLORIDE 0.9% 1,000 ML IV SCH ×2 (09:39→18:30)
[2023-09-22] MEDS: TAPENTADOL HCL ER 50 MG TABCR PO SCH ×2 (10:10→20:47)
[2023-09-22] MEDS: bisacodyL 10 MG SUPP PR SCH (16:10)
--- NOTE | 2023-09-22 20:44 | Hospitalist Progress Note ---
Date of Service September 22, 2023 Assessment & Plan (1) Hypercalcemia: Plan: suspect 2nd to immobility in the setting of her multiple compression fractures creati started NS hydration 125cc/hr hold vit D supplement she is on no other meds that would cause hypercalcemia check phos, check iPTH in am 25-Oh vit D level 76.5 this admission repeat BMP am fatigue today could be from the high calcium (2) Lumbar compression fracture: Plan: T12 thru L5 bone scan and MRI l-spine NEGATIVE for findings suggestive of bony mets from breast ca pain remains severe despite complex regimen of meds however she is ambulating and transferring independently - she could not do that a few days ago further, she has not needed IV dilaudid in 48 hours pain on pain scale slowly coming down although she is still not at a level that would allow safe d/c home appreciate pain management and ortho spine consults with recs plan - cont nucynta ER 50mg BID cont nucynta IR prn cont dilaudid prn for refractory pain cont baclofen -- change to 5mg HS scheduled, and 5mg qam PRN - she is ok with that; this may help daytime fatigue by making am dose optional tylenol scheduled - continue lidoderms - continue cont dexamethasone 4mg q8h - no wean today cont PT, OT TLSO brace when walking steroids will help any inflammatory component of l-spine, and if she has bursitis of L hip, probably will help that as well - has seemed to help this overnight (3) Lumbar disc herniation: Plan: seen on MRI l-spine see #1 above (4) History of breast cancer: Plan: noted s/p lumpectomy R chronic R arm lymphedema from such no metastatic bony disease on bone scan (5) Microscopic hematuria: (6) Systemic lupus erythematosus: Plan: followed by out of town rheumatology not on any chronic meds for such at this time (7) Exposure to COVID-19 virus: Plan: 2 hour exposure to her father who tested + the AM of 09/20/23 patient placed in single room COVID test negative retest in 5 days if no symptoms (09/25/23) retest sooner if any signs/symptoms of COVID (8) Trochanteric bursitis of left hip: Plan: suspected +/- IT band pain improved with steroids Plan dvt proph - lovenox 40mg daily bowel regimen - cont miralax BID dosing; cont senna cont PT/OT as tolerated Admission and Anticipated Discharge Date Admission Date: September 19, 2023 Subjective back pain ranging from 7-8 at most times 6 at its best on 1-10 pain scale L hip pain improved today still with "spasms" of back feels very tired today - more so than previous no URI symptoms, cough, fevers/chills, myalgias, GI upset, etc eating fine Review of Systems Review of Systems: gen - no fevers or chills cv - no chest symptoms pulm - no dyspnea GI - no further constipation - no LUTS neuro - no radicular symptoms of either leg Physical Exam Physical Exam: gen - NAD; resting comfortably in bed; looks same as yesterday mouth - MMM neck - no JVD heart - RRR, s1 s2, no murmur lungs - cta b/l abd - soft NT ND BS+ ext - no edema, pulses 2+ b/l neuro - strength 5/5 hip flexion b/l and distal strength 5/5 b/l (ankle flora siflexion/plantarflexion) musculo - greater trochanter region on left - nontender to palpation today psych - oriented x 3 Results & Data Results & Data Vital Signs (Past 12 Hours) Vital Signs Temp Pulse Resp BP Pulse Ox O2 Del Method 09/22/23 20:16 36.7 C 69 16 133/79 94 Room Air 09/22/23 16:00 36.9 C 68 16 120/74 95 Room Air Laboratory Results Laboratory Results - last 24 hr 09/22/23 06:32 Sodium 137 Potassium 4.5 Chloride 103 Carbon Dioxide 27 Anion Gap 7 BUN 22 Creatinine 0.70 Est Cr Clr Drug Dosing 77.5 Est GFR ( Amer) 109.1 Est GFR (Non-Af Amer) 94.2 BUN/Creatinine Ratio 31.4 H Glucose 140 H Calcium 10.8 H PG Care Time/CCT Total # of Minutes Spent Total Time Spent with Patient: Total time spent is greater than 50% in coordination of care (as documented) at patient's floor/unit and/or counseling patient: Coding Level of Care Code 76816 SUB INP/OBS CARE 2/35MIN Diagnoses Hypercalcemia E83.52 Compression fracture of lumbar vertebra, unspecified lumbar vertebral level, initial encounter S32.000A Encounter type: initial encounter Lumbar vertebra fracture level: unspecified lumbar vertebra Lumbar disc herniation M51.26 History of breast cancer Z85.3 Microscopic hematuria R31.29 Other systemic lupus erythematosus with other organ involvement M32.19 Systemic lupus erythematosus organ involvement: other Systemic lupus erythematosus type: other Exposure to COVID-19 virus Z20.822 Trochanteric bursitis of left hip M70.62 (2) Lumbar compression fracture Encounter type: initial encounter Lumbar vertebra fracture level: unspecified lumbar vertebra Qualified Code(s): S32.000A - Wedge compression fracture of unspecified lumbar vertebra, initial encounter for closed fracture (6) Systemic lupus erythematosus Systemic lupus erythematosus organ involvement: other Systemic lupus erythematosus type: other Qualified Code(s): M32.19 - Other organ or system involvement in systemic lupus erythematosus
[2023-09-23] MEDS: TAPENTADOL HCL 50 MG TAB PO PRN ×3 (01:06→20:42)
[2023-09-23] MEDS: SODIUM CHLORIDE 0.9% 1,000 ML IV SCH ×2 (03:21→10:02)
[2023-09-23] MEDS: HYDROmorphone INJ 0.5 MG/0.5 ML SYR IV PRN (05:14)
[2023-09-23] MEDS: dexAMETHasone 4 MG in SYRINGE 0 ML IV SCH ×2 (05:38→13:43)
[2023-09-23 08:45] LABS: BUN Creatinine Ratio 31.1 (10-20); Calcium 9.5 mg/dl (8.6-10.3); Creatinine Clr Calc Pharmacy 88.9 ml/min; Est GFR (African American) 114.2 ml/min; Est GFR (Non-African American) 98.5 ml/min; Potassium 4.1 mmol/L (3.5-5.1)
[2023-09-23] MEDS: TAPENTADOL HCL ER 50 MG TABCR PO SCH ×2 (09:15→22:18)
[2023-09-23] MEDS ORDERED: BACLOFEN 10 MG TAB PO PRN (09:46)
[2023-09-23] MEDS: BACLOFEN 10 MG TAB PO SCH (10:01)
[2023-09-23] MEDS: ACETAMINOPHEN 325 MG TAB PO SCH (10:02)
[2023-09-23] MEDS: LIDOCAINE 5% 1 PATCH TD SCH (10:03)
[2023-09-23] MEDS: DICLOFENAC SOD 1% GEL 100 GM TUBE EXT SCH ×4 (10:04→22:20)
[2023-09-23] MEDS: LETROZOLE 2.5 MG TAB PO SCH (10:16)
[2023-09-23] MEDS: ASPIRIN 81 MG ECTAB PO SCH (10:16)
[2023-09-23] MEDS: ENOXAPARIN INJ 40 MG/0.4 ML SYR SQ SCH (10:17)
[2023-09-23] MEDS: POLYETHYLENE (MIRALAX) 17 GM PACK PO SCH ×2 (10:18→21:03)
[2023-09-23] MEDS: SENNA 8.6 MG TAB PO SCH (10:19)
[2023-09-23] MEDS: ESCITALOPRAM OXALATE 10 MG TAB PO SCH (11:47)
[2023-09-23] MEDS: bisacodyL 10 MG SUPP PR SCH (13:43)
[2023-09-23] MEDS ORDERED: BACLOFEN 10 MG TAB PO STA (16:56)
[2023-09-23] MEDS ORDERED: BACLOFEN 10 MG TAB PO SCH (21:00)
--- NOTE | 2023-09-23 22:01 | Hospitalist Progress Note ---
Date of Service September 23, 2023 Assessment & Plan (1) Hypercalcemia: Plan: improved s/p NS hydration overnight as well as holding vit D supplement suspect 2nd to immobility in the setting of her multiple compression fractures she is on no meds that would cause hypercalcemia phos and iPTH both wnl 25-Oh vit D level 76.5 this admission repeat BMP am (2) Lumbar compression fracture: Plan: T12 thru L5 bone scan and MRI l-spine NEGATIVE for findings suggestive of bony mets from breast ca pain remains severe although she is making steady progress now able to ambulate and transfer more comfortably and independently - she could not do that a few days ago further, she has needed very little IV dilaudid in the last 72 hours pain on pain scale slowly coming down although she is still not at a level that would allow safe d/c home (reports 05/20 today) appreciate pain management and ortho spine consults with recs plan - cont nucynta ER 50mg BID cont nucynta IR prn but increase to 75mg from 50mg doses cont dilaudid prn for refractory pain cont baclofen -- increase to 5mg TID -- she reports this works well for her d/c tylenol - she has been refusing it lidoderms - continue cont dexamethasone -- wean to 4mg BID add K-pad heat cont PT, OT TLSO brace when walking steroids will help any inflammatory component of l-spine will ask pain management to re-eval her tomorrow to determine if there is anything else we can offer for pain relief (3) Lumbar disc herniation: Plan: seen on MRI l-spine see #1 above could consider gabapentin for pain but defer for now (4) History of breast cancer: Plan: noted s/p lumpectomy R chronic R arm lymphedema from such no metastatic bony disease on bone scan (5) Microscopic hematuria: Plan: pt states that flank pain is very different from when she had had a kidney stone in the past defer on CT imaging but low threshold to pursue it if needed (6) Systemic lupus erythematosus: Plan: followed by out of town rheumatology not on any chronic meds for such at this time (7) Exposure to COVID-19 virus: Plan: 2 hour exposure to her father who tested + the AM of 09/20/23 patient placed in single room on 09/20/23 COVID test negative on 09/20 retest in 5 days if still not having symptoms (09/25/23) retest sooner if any signs/symptoms of COVID (8) Trochanteric bursitis of left hip: Plan: suspected +/- IT band pain improved with steroids Plan dvt proph - lovenox 40mg daily bowel regimen - cont miralax BID dosing; cont senna cont PT/OT as tolerated Admission and Anticipated Discharge Date Admission Date: September 19, 2023 Subjective patient worked with PT today wore TLSO brace did an entire lap around the floor was very sore, was painful her pain on average is about a 7 location of worst pain is paraspinal region on left she states the pain is NOT like the pain she had with a prior kidney stone left lateral hip pain is resolved no radicular symptoms of either leg pain is the worst first thing in am upon awakening baclofen works well for her back pain denies ANY URI or COVID symptoms Review of Systems Review of Systems: gen - no fevers, chills; good appetite HENT - no sore throat, congestion pulm - no cough or dyspnea GI - no vomiting, no diarrhea Physical Exam Physical Exam: gen - NAD; resting comfortably in bed; looks good mouth - MMM neck - no JVD heart - RRR, s1 s2, no murmur lungs - cta b/l abd - soft NT ND BS+ ext - no edema, pulses 2+ b/l neuro - strength 5/5 all muscle groups of LEs b/l musculo - greater trochanter region on left - cont to be nontender to palpation; tender to palpation over both SI joints and the left paraspinal musculature psych - oriented x 3 Results & Data Results & Data Vital Signs (Past 12 Hours) Vital Signs Temp Pulse Pulse Pulse Resp BP Pulse Ox 09/23/23 20:01 36.4 C L 69 16 146/83 H 95 09/23/23 15:41 36.7 C 69 18 164/79 H 95 09/23/23 12:33 36.5 C 63 13 121/72 95 O2 Del Method 09/23/23 20:01 Room Air 09/23/23 15:41 Room Air 09/23/23 12:33 Room Air Laboratory Results Laboratory Results - last 24 hr 09/23/23 07:01 Sodium 139 Potassium 4.1 Chloride 109 H Carbon Dioxide 24 Anion Gap 6 BUN 19 Creatinine 0.61 Est Cr Clr Drug Dosing 88.9 Est GFR ( Amer) 114.2 Est GFR (Non-Af Amer) 98.5 BUN/Creatinine Ratio 31.1 H Glucose 129 H Calcium 9.5 Phosphorus 4.0 PTH Intact 26.0 PG Care Time/CCT Total # of Minutes Spent Total Time Spent with Patient: Total time spent is greater than 50% in coordination of care (as documented) at patient's floor/unit and/or counseling patient: Coding Level of Care Code 92435 SUB INP/OBS CARE 235MIN Diagnoses Hypercalcemia E83.52 Compression fracture of lumbar vertebra, unspecified lumbar vertebral level, initial encounter S32.000A Encounter type: initial encounter Lumbar vertebra fracture level: unspecified lumbar vertebra Lumbar disc herniation M51.26 History of breast cancer Z85.3 Microscopic hematuria R31.29 Other systemic lupus erythematosus with other organ involvement M32.19 Systemic lupus erythematosus organ involvement: other Systemic lupus erythematosus type: other Exposure to COVID-19 virus Z20.822 Trochanteric bursitis of left hip M70.62 (2) Lumbar compression fracture Encounter type: initial encounter Lumbar vertebra fracture level: unspecified lumbar vertebra Qualified Code(s): S32.000A - Wedge compression fracture of unspecified lumbar vertebra, initial encounter for closed fracture (6) Systemic lupus erythematosus Systemic lupus erythematosus organ involvement: other Systemic lupus erythematosus type: other Qualified Code(s): M32.19 - Other organ or system involvement in systemic lupus erythematosus
[2023-09-24] MEDS: TAPENTADOL HCL 50 MG TAB PO PRN ×2 (02:17→16:07)
[2023-09-24] MEDS: HYDROmorphone INJ 0.5 MG/0.5 ML SYR IV PRN (06:23)
[2023-09-24] MEDS: BACLOFEN 10 MG TAB PO SCH ×3 (08:28→21:28)
[2023-09-24] MEDS: ASPIRIN 81 MG ECTAB PO SCH (08:28)
[2023-09-24] MEDS: ESCITALOPRAM OXALATE 10 MG TAB PO SCH (08:29)
[2023-09-24] MEDS: LETROZOLE 2.5 MG TAB PO SCH (08:29)
[2023-09-24] MEDS: SENNA 8.6 MG TAB PO SCH (08:30)
[2023-09-24] MEDS: POLYETHYLENE (MIRALAX) 17 GM PACK PO SCH ×2 (08:30→21:11)
[2023-09-24] MEDS: ENOXAPARIN INJ 40 MG/0.4 ML SYR SQ SCH (08:31)
[2023-09-24] MEDS: LIDOCAINE 5% 1 PATCH TD SCH ×3 (08:32→16:11)
[2023-09-24] MEDS: DICLOFENAC SOD 1% GEL 100 GM TUBE EXT SCH ×4 (08:32→21:30)
--- NOTE | 2023-09-24 08:44 | Pain Management Progress Note ---
Date of Service September 24, 2023 Assessment & Plan (1) Lumbar compression fracture: Encounter type: initial encounter Lumbar vertebra fracture level: unspecified lumbar vertebra Qualified Code(s): S32.000A - Wedge compression fracture of unspecified lumbar vertebra, initial encounter for closed fracture (2) Lumbar disc herniation: (3) Trochanteric bursitis: Plan 1. Will further progress her Nucynta ER to 100 mg every 12 hours--side effects versus benefits discussed 2. Patient may continue with Nucynta IR 75 mg every 4 hours for as needed breakthrough pain. 3. Patient may continue with baclofen 5 mg 3 times daily 4. [place] IV Dilaudid for pain not well controlled with above 5. Expectations were discussed with the patient regarding healing from her mult iple lumbar compression fractures and she verbalized understanding Admission and Anticipated Discharge Date Admission Date: September 19, 2023 Subjective Mrs. Arroyo is a 58-year-old white female who was admitted due to axial back pain with discovery of multiple mild endplate compression fractures involving [id number] subacute with subsequent normal bone scan failing to reveal evidence of any metastatic disease due to her history of breast cancer. Patient continues to complain of axial thoracolumbar back pain complaints and bilateral hip pain which can travel to the lateral thighs. She reports pain is constant although increased with movement. Her pain is aching and episodically sharp. She has no true radicular pattern to her pain. She feels that her pain is improving and her ability to ambulate is improving as well with less pain and discomfort. She is tolerating medication without side effects. She continues utilize IV Dilaudid rarely for breakthrough pain. She reports that Nucynta IR is effective at diminishing her pain. She is tolerating the center without side effects. Patient indicates that she is moving her bowels and denies abdominal pain or constipation. She is tolerating baclofen and is reporting diminished frequency of spasm. Patient is rating her pain a 3-7/10. Patient has no further constitutional complaints. Plan of care discussed with Dr. Sherlyn Richardson. Physical Exam 2 Physical Exam: General: Patient sitting quietly in exam room in no acute distress. Speech and thought process appropriate. Mood and affect appropriate. Cognition intact. Back/spine: Patient able to sit up for physical exam. Patient has minimal tenderness over the midline to palpation and percussion. Patient is tender in the thoracolumbar paravertebral musculature with some spasm bilaterally right greater than left-sided. Lower extremities: SLR negative bilaterally. Patient tender to direct palpation over the greater trochanter bilaterally. Strength testing 5/5 and equal with dorsiflexion, plantarflexion and EHL testing. Sensation intact without deficit. Neurologic: Cranial nerves grossly intact. Ambulatory function not witnessed.
[2023-09-24] MEDS ORDERED: dexAMETHasone 4 MG in SYRINGE 0 ML IV SCH (09:00)
[2023-09-24] MEDS ORDERED: TAPENTADOL HCL ER 50 MG TABCR PO SCH (09:00)
[2023-09-24 09:48] LABS: BUN Creatinine Ratio 23.4 (10-20); Calcium 10.8 mg/dl (8.6-10.3); Creatinine Clr Calc Pharmacy 70.5 ml/min; Est GFR (African American) 97.3 ml/min; Est GFR (Non-African American) 83.9 ml/min; Potassium 3.4 mmol/L (3.5-5.1)
[2023-09-24] MEDS: bisacodyL 10 MG SUPP PR SCH (13:01)
--- NOTE | 2023-09-24 18:42 | Hospitalist Progress Note ---
Date of Service September 24, 2023 Assessment & Plan (1) Hypercalcemia: Plan: treated with IV NS hydration as well as holding vit D supplement persists 09/24 mild elevation suspect 2nd to immobility in the setting of her multiple compression fractures she is on no meds that would cause hypercalcemia phos and iPTH both wnl 25-Oh vit D level 76.5 this admission repeat BMP in 1-2 weeks once mobility improved (2) Lumbar compression fracture: Plan: T12 thru L5 bone scan and MRI l-spine NEGATIVE for findings suggestive of bony mets from breast ca pain remains severe although she is making steady progress now able to ambulate and transfer more comfortably and independently - she could not do that a few days ago further, she has needed very little IV dilaudid in the last 72 hours pain on pain scale slowly coming down although she is still not at a level that would allow safe d/c home (reports 05/20 today) appreciate pain management and ortho spine consults with recs plan - cont nucynta ER - 100 mg did not cause oversedation but she was sleepy, after discussion with pain service today changed to 50 mg in AM and 100 mg in PM cont nucynta IR 75 mg PRN cont dilaudid prn for refractory pain cont baclofen - 5mg TID -- she reports this works well for her d/c tylenol - she has been refusing it lidoderms - continue cont dexamethasone -- change to po and stop after tomorrow (5d course) add K-pad heat cont PT, OT TLSO brace when walking (3) Lumbar disc herniation: Plan: seen on MRI l-spine see #1 above could consider gabapentin for pain but defer for now (4) History of breast cancer: Plan: noted s/p lumpectomy R chronic R arm lymphedema from such no metastatic bony disease on bone scan (5) Microscopic hematuria: Plan: pt states that flank pain is very different from when she had had a kidney stone in the past defer on CT imaging but low threshold to pursue it if needed (6) Systemic lupus erythematosus: Plan: followed by out of town rheumatology not on any chronic meds for such at this time (7) Exposure to COVID-19 virus: Plan: 2 hour exposure to her father who tested + the AM of 09/20/23 patient placed in single room on 09/20/23 COVID test negative on 09/20 retest in 5 days if still not having symptoms (09/25/23) retest sooner if any signs/symptoms of COVID (8) Trochanteric bursitis of left hip: Plan: suspected +/- IT band pain improved with steroids Plan dvt proph - lovenox 40mg daily bowel regimen - cont miralax BID dosing; cont senna cont PT/OT as tolerated Admission and Anticipated Discharge Date Admission Date: September 19, 2023 Subjective back pain from multiple compression fractures improved on increased nucynta but fells very groggy after 100 mg dose and frequently falling asleep, had one dose IV hydromorphone overnight. confidence with mobility still not great but improved. lives with , can be on one level. no numbness or weakness of legs, no bowel/bladder symptoms Physical Exam Physical Exam: PHYSICAL EXAMINATION Last 24h vital signs reviewed, see documentation in flowsheet General: comfortable appearing, no distress, reclining in bed HEENT: Normocephalic, atraumatic, pupils round and equal, sclerae anicteric, no conjunctival injection, moist mucus membranes Lungs: Normal respiratory effort. Clear to auscultation bilaterally. No RRW Heart: Regular rate and rhythm, no murmurs. No JVD Abdomen: Soft, nontender, nondistended. Bowel sounds present. Extremities: Warm, dry, well-perfused. No extremity edema. Neuro: Alert and oriented x 4, face symmetric, moves 4 extremities well Psych: Normal affect and behavior Results & Data Results & Data Vital Signs (Past 12 Hours) Vital Signs Temp Pulse Resp BP Pulse Ox O2 Del Method 09/24/23 15:03 36.8 C 69 20 105/64 96 Room Air 09/24/23 07:45 36.7 C 62 18 133/76 94 Room Air PG Care Time/CCT Total # of Minutes Spent Total Time Spent with Patient: Total time spent is greater than 50% in coordination of care (as documented) at patient's floor/unit and/or counseling patient: Coding Level of Care Code 22415 SUB INP/OBS CARE 2/35MIN Diagnoses Hypercalcemia E83.52 Compression fracture of lumbar vertebra, unspecified lumbar vertebral level, initial encounter S32.000A Encounter type: initial encounter Lumbar vertebra fracture level: unspecified lumbar vertebra Lumbar disc herniation M51.26 History of breast cancer Z85.3 Microscopic hematuria R31.29 Other systemic lupus erythematosus with other organ involvement M32.19 Systemic lupus erythematosus type: other Systemic lupus erythematosus organ involvement: other Exposure to COVID-19 virus Z20.822 Trochanteric bursitis of left hip M70.62 (2) Lumbar compression fracture Encounter type: initial encounter Lumbar vertebra fracture level: unspecified lumbar vertebra Qualified Code(s): S32.000A - Wedge compression fracture of unspecified lumbar vertebra, initial encounter for closed fracture (6) Systemic lupus erythematosus Systemic lupus erythematosus type: other Systemic lupus erythematosus organ involvement: other Qualified Code(s): M32.19 - Other organ or system involvement in systemic lupus erythematosus
[2023-09-24] MEDS: dexAMETHasone 4 MG TAB PO SCH (21:29)
[2023-09-24] MEDS: TAPENTADOL HCL ER 50 MG TABCR PO SCH (21:30)
[2023-09-25] MEDS: TAPENTADOL HCL 50 MG TAB PO PRN ×2 (01:55→23:38)
[2023-09-25] MEDS: ESCITALOPRAM OXALATE 10 MG TAB PO SCH (09:13)
[2023-09-25] MEDS: POLYETHYLENE (MIRALAX) 17 GM PACK PO SCH ×2 (09:13→21:28)
[2023-09-25] MEDS: dexAMETHasone 4 MG TAB PO SCH ×2 (09:13→21:26)
[2023-09-25] MEDS: SENNA 8.6 MG TAB PO SCH (09:13)
[2023-09-25] MEDS: bisacodyL 10 MG SUPP PR SCH (09:13)
[2023-09-25] MEDS: DICLOFENAC SOD 1% GEL 100 GM TUBE EXT SCH ×4 (09:13→21:28)
[2023-09-25] MEDS: LIDOCAINE 5% 1 PATCH TD SCH (09:13)
[2023-09-25] MEDS: TAPENTADOL HCL ER 50 MG TABCR PO SCH ×2 (09:31→21:27)
[2023-09-25 10:08] LABS: Appearance Urine Clear (Clear); Bacteria Urine Automated Negative (Negative); Bilirubin Urine Negative (Negative); Blood Urine 2+ (Negative); Cast Urine Automated 0 /lpf (0-5); Color Urine Yellow; Glucose Urine UA Negative (Negative); Ketones Urine Negative (Negative); Leukocyte Esterase Urine Negative (Negative); Nitrite Urine Negative (Negative); Protein Urine Negative (Negative); Specific Gravity Urine 1.007 (1.000-1.030); Urobilinogen Urine Negative (Negative)
[2023-09-25] MEDS: BACLOFEN 10 MG TAB PO SCH ×3 (10:19→21:26)
[2023-09-25] MEDS: ASPIRIN 81 MG ECTAB PO SCH (10:19)
[2023-09-25] MEDS: ENOXAPARIN INJ 40 MG/0.4 ML SYR SQ SCH (10:21)
[2023-09-25] MEDS: LETROZOLE 2.5 MG TAB PO SCH (11:05)
--- NOTE | 2023-09-25 15:24 | Hospitalist Progress Note ---
Date of Service September 25, 2023 Assessment & Plan (1) Lumbar compression fracture: Plan: T12 thru L5 bone scan and MRI l-spine NEGATIVE for findings suggestive of bony mets from breast ca pain remains severe although she is making steady progress now able to ambulate and transfer more comfortably and independently - she could not do that a few days ago further, she has needed very little IV dilaudid in the last 72 hours pain on pain scale slowly coming down although she is still not at a level that would allow safe d/c home (reports 05/20 today) appreciate pain management and ortho spine consults with recs plan - cont nucynta ER - 50 mg in AM and 100 mg in PM - if not too groggy tomorrow AM will get prior auth for this dose for discharge, follow up in pain clinic cont nucynta IR 75 mg PRN cont dilaudid prn for refractory pain - none last 24h+ cont baclofen - 5mg TID -- she reports this works well for her d/c tylenol - she has been refusing it lidoderms - continue dexamethasone po today then stop (completes 5d course) add K-pad heat cont PT, OT TLSO brace when walking (2) Hypercalcemia: Plan: mild, asymptomatic treated with IV NS hydration as well as holding vit D supplement persists 09/24 mild elevation suspect 2nd to immobility in the setting of her multiple compression fractures she is on no meds that would cause hypercalcemia phos and iPTH both wnl 25-Oh vit D level 76.5 this admission BMP in am to check for stability off IVF for >48h repeat BMP in 1-2 weeks once mobility improved (3) Lumbar disc herniation: Plan: seen on MRI l-spine see #1 above could consider gabapentin for pain but defer for now (4) History of breast cancer: Plan: noted s/p lumpectomy R chronic R arm lymphedema from such no metastatic bony disease on bone scan (5) Microscopic hematuria: Plan: UA done for dysuria - reviewed - no evidence of UTI, microscopic hematuria persists. Reviewed past Urology notes and discussed with patient, chronic problem, had CT imaging over summer 2020 no stones etc. -follow up with Dr. Bueno as per routine interval (6) Systemic lupus erythematosus: Plan: followed by out of town rheumatology not on any chronic meds for such at this time (7) Exposure to COVID-19 virus: Plan: 2 hour exposure to her father who tested + the AM of 09/20/23 patient placed in single room on 09/20/23 COVID test negative on 09/20 retest today ordered (5 days) - remains asx (8) Trochanteric bursitis of left hip: Plan: suspected +/- IT band pain improved with steroids Plan dvt proph - lovenox 40mg daily bowel regimen - cont miralax BID dosing; cont senna cont PT/OT as tolerated Admission and Anticipated Discharge Date Admission Date: September 19, 2023 Subjective pain control improved overnight on increased nucynta, adequate pain control toda y about a 7/10 back pain, mobility slowly improving, does have some lightheadedness and grogginess/sleepiness today. No cough/SOB/sore throat/fever. Had transient dysuria yesterday. Has chronic microscopic hematuria has had uro eval. Physical Exam Physical Exam: PHYSICAL EXAMINATION Last 24h vital signs reviewed, see documentation in flowsheet General: comfortable appearing, no distress, reclining in bed HEENT: Normocephalic, atraumatic, pupils round and equal, sclerae anicteric, no conjunctival injection, moist mucus membranes Lungs: Normal respiratory effort. Clear to auscultation bilaterally. No RRW Heart: Regular rate and rhythm, no murmurs. No JVD Abdomen: Soft, nontender, nondistended. Bowel sounds present. Extremities: Warm, dry, well-perfused. No extremity edema. Neuro: Alert and oriented x 4, face symmetric, moves 4 extremities well Psych: Normal affect and behavior Results & Data Results & Data Vital Signs (Past 12 Hours) Vital Signs Temp Pulse Resp BP Pulse Ox O2 Del Method 09/25/23 07:25 36.6 C 58 L 16 121/73 95 Room Air PG Care Time/CCT Total # of Minutes Spent Total Time Spent with Patient: Total time spent is greater than 50% in coordination of care (as documented) at patient's floor/unit and/or counseling patient: Coding Level of Care Code 25411 SUB INP/OBS CARE 2/35MIN Diagnoses Compression fracture of lumbar vertebra, unspecified lumbar vertebral level, initial encounter S32.000A Encounter type: initial encounter Lumbar vertebra fracture level: unspecified lumbar vertebra Hypercalcemia E83.52 Lumbar disc herniation M51.26 History of breast cancer Z85.3 Microscopic hematuria R31.29 Other systemic lupus erythematosus with other organ involvement M32.19 Systemic lupus erythematosus type: other Systemic lupus erythematosus organ involvement: other Exposure to COVID-19 virus Z20.822 Trochanteric bursitis of left hip M70.62 (1) Lumbar compression fracture Encounter type: initial encounter Lumbar vertebra fracture level: unspecified lumbar vertebra Qualified Code(s): S32.000A - Wedge compression fracture of unspecified lumbar vertebra, initial encounter for closed fracture (6) Systemic lupus erythematosus Systemic lupus erythematosus type: other Systemic lupus erythematosus organ involvement: other Qualified Code(s): M32.19 - Other organ or system involvement in systemic lupus erythematosus
[2023-09-25 16:19] LABS: Influenza A virus by PCR Negative (Neg); Influenza B virus by PCR Negative (Neg); RSV by PCR Negative (Neg); SARS CoV2 RNA(COVID-19) Ceph NEGATIVE (Negative)
[2023-09-26] MEDS: BACLOFEN 10 MG TAB PO SCH ×3 (08:04→20:11)
[2023-09-26] MEDS: DICLOFENAC SOD 1% GEL 100 GM TUBE EXT SCH ×4 (08:05→20:12)
[2023-09-26] MEDS: ENOXAPARIN INJ 40 MG/0.4 ML SYR SQ SCH (08:05)
[2023-09-26] MEDS: LIDOCAINE 5% 1 PATCH TD SCH (08:06)
[2023-09-26] MEDS: ESCITALOPRAM OXALATE 10 MG TAB PO SCH (08:06)
[2023-09-26] MEDS: SENNA 8.6 MG TAB PO SCH (08:07)
[2023-09-26] MEDS: ASPIRIN 81 MG ECTAB PO SCH (08:07)
[2023-09-26] MEDS: POLYETHYLENE (MIRALAX) 17 GM PACK PO SCH ×2 (08:07→20:05)
[2023-09-26] MEDS: LETROZOLE 2.5 MG TAB PO SCH (08:18)
[2023-09-26] MEDS: TAPENTADOL HCL ER 50 MG TABCR PO SCH ×2 (08:30→20:11)
[2023-09-26 08:42] LABS: Anion Gap 7 (3-11); BUN Creatinine Ratio 32.8 (10-20); Blood Urea Nitrogen 21 mg/dl (6-23); Calcium 10.4 mg/dl (8.6-10.3); Carbon Dioxide 27 mmol/L (21-32); Chloride 101 mmol/L (98-107); Creatinine Clr Calc Pharmacy 84.8 ml/min; Est GFR (African American) 112.4 ml/min; Glucose 115 mg/dl (70-99(Fasting)); Sodium 135 mmol/L (136-145)
[2023-09-26] MEDS: TAPENTADOL HCL 50 MG TAB PO PRN (13:56)
[2023-09-26] MEDS: bisacodyL 10 MG SUPP PR SCH (15:18)
--- NOTE | 2023-09-26 17:29 | Hospitalist Progress Note ---
Date of Service September 26, 2023 Assessment & Plan (1) Lumbar compression fracture: Plan: T12 thru L5 bone scan and MRI l-spine NEGATIVE for findings suggestive of bony mets from breast ca pain remains severe although she is making steady progress now able to ambulate and transfer more comfortably and independently - she could not do that a few days ago further, she has needed very little IV dilaudid in the last 72 hours pain on pain scale slowly coming down although she is still not at a level that would allow safe d/c home (reports 05/20 today) appreciate pain management and ortho spine consults with recs plan - cont nucynta ER - 50 mg in AM and 100 mg in PM - will discharge on this dose, follow up in pain clinic cont nucynta IR 75 mg PRN cont baclofen - 5mg TID -- she reports this works well for her d/c tylenol - she has been refusing it lidoderms - continue treated with 5d course of dexamethasone, completed K-pad heat cont PT, OT TLSO brace when walking home health PT (2) Hypercalcemia: Plan: mild, asymptomatic treated with IV NS hydration as well as holding vit D supplement persists 09/26 mild elevation - not going up, not on IVF last 48h suspect 2nd to immobility in the setting of her multiple compression fractures she is on no meds that would cause hypercalcemia phos and iPTH both wnl 25-Oh vit D level 76.5 this admission, stopped vit D repeat BMP in 1-2 weeks once mobility improved (3) Lumbar disc herniation: Plan: seen on MRI l-spine - bilateral - R L4 and L L2 roots affected see #1 above could consider gabapentin for pain but defer for now likely explains parasthesia episode 09/25 (4) History of breast cancer: Plan: noted s/p lumpectomy R chronic R arm lymphedema from such no metastatic bony disease on bone scan (5) Microscopic hematuria: Plan: UA done for dysuria - reviewed - no evidence of UTI, microscopic hematuria persists. Reviewed past Urology notes and discussed with patient, chronic problem, had CT imaging over summer 2020 no stones etc. -follow up with Dr. Bueno as per routine interval (6) Systemic lupus erythematosus: Plan: followed by out of town rheumatology not on any chronic meds for such at this time (7) Exposure to COVID-19 virus: Plan: 2 hour exposure to her father who tested + the AM of 09/20/23 patient placed in single room on 09/20/23 COVID test negative on 09/20, negative 09/25 remains asx (8) Trochanteric bursitis of left hip: Plan: suspected +/- IT band pain improved with steroids Plan dvt proph - lovenox 40mg daily bowel regimen - cont miralax BID dosing; cont senna cont PT/OT as tolerated Admission and Anticipated Discharge Date Admission Date: September 19, 2023 Subjective Had apx 1 hour episode of dysesthesia/paresthesia last night both sides of midback radiating down both legs, resolved, was not painful. Had not had that before. Was sitting at the time and awake. Pain adequately controlled, mildly groggy and lightheaded but no worse. Current dose of tapentadol seems appropriate Physical Exam 2 Physical Exam: PHYSICAL EXAMINATION Last 24h vital signs reviewed, see documentation in flowsheet General: comfortable appearing, no distress, sitting in bed HEENT: Normocephalic, atraumatic, pupils round and equal, sclerae anicteric, no conjunctival injection, moist mucus membranes Lungs: Normal respiratory effort Heart: deferred Abdomen: Soft, nondistended. Extremities: Warm, dry, well-perfused. No extremity edema. Neuro: Alert and oriented x 4, face symmetric, moves 4 extremities well. LE with sensation intact to LT bilaterally, strength 5/5 distally, patellar reflexes normal 2+ no spread Psych: Normal affect and behavior Results & Data Results & Data Vital Signs (Past 12 Hours) Vital Signs Temp Pulse Resp BP Pulse Ox O2 Del Method 09/26/23 15:43 36.7 C 64 16 113/67 96 Room Air 09/26/23 08:30 Room Air 09/26/23 07:44 36.9 C 57 L 16 115/72 95 Room Air Diagnostic Findings 09/17/23 10:32 09/26/23 08:55 PG Care Time/CCT Total # of Minutes Spent Total Time Spent with Patient: Total time spent is greater than 50% in coordination of care (as documented) at patient's floor/unit and/or counseling patient: Coding Level of Care Code 55870 SUB INP/OBS CARE 2/35MIN Diagnoses Compression fracture of lumbar vertebra, unspecified lumbar vertebral level, initial encounter S32.000A Encounter type: initial encounter Lumbar vertebra fracture level: unspecified lumbar vertebra Hypercalcemia E83.52 Lumbar disc herniation M51.26 History of breast cancer Z85.3 Microscopic hematuria R31.29 Other systemic lupus erythematosus with other organ involvement M32.19 Systemic lupus erythematosus type: other Systemic lupus erythematosus organ involvement: other Exposure to COVID-19 virus Z20.822 Trochanteric bursitis of left hip M70.62 (1) Lumbar compression fracture Encounter type: initial encounter Lumbar vertebra fracture level: unspecified lumbar vertebra Qualified Code(s): S32.000A - Wedge compression fracture of unspecified lumbar vertebra, initial encounter for closed fracture (6) Systemic lupus erythematosus Systemic lupus erythematosus type: other Systemic lupus erythematosus organ involvement: other Qualified Code(s): M32.19 - Other organ or system involvement in systemic lupus erythematosus
[2023-09-27] MEDS: TAPENTADOL HCL 50 MG TAB PO PRN (00:53)
[2023-09-27] MEDS: SENNA 8.6 MG TAB PO SCH (08:36)
[2023-09-27] MEDS: POLYETHYLENE (MIRALAX) 17 GM PACK PO SCH ×2 (08:36→19:57)
[2023-09-27] MEDS: BACLOFEN 10 MG TAB PO SCH ×3 (08:41→19:56)
[2023-09-27] MEDS: ESCITALOPRAM OXALATE 10 MG TAB PO SCH (08:42)
[2023-09-27] MEDS: LETROZOLE 2.5 MG TAB PO SCH (08:42)
[2023-09-27] MEDS: ASPIRIN 81 MG ECTAB PO SCH (08:42)
[2023-09-27] MEDS: LIDOCAINE 5% 1 PATCH TD SCH (08:43)
[2023-09-27] MEDS: ENOXAPARIN INJ 40 MG/0.4 ML SYR SQ SCH (08:43)
[2023-09-27] MEDS: DICLOFENAC SOD 1% GEL 100 GM TUBE EXT SCH ×4 (08:43→19:56)
[2023-09-27] MEDS: TAPENTADOL HCL ER 50 MG TABCR PO SCH ×3 (08:44→19:56)
[2023-09-27] MEDS: bisacodyL 10 MG SUPP PR SCH (14:47)
--- NOTE | 2023-09-27 17:28 | Hospitalist Progress Note ---
Date of Service September 27, 2023 Assessment & Plan (1) Lumbar compression fracture: Plan: T12 thru L5 bone scan and MRI l-spine NEGATIVE for findings suggestive of bony mets from breast ca pain remains severe although she is making steady progress now able to ambulate and transfer more comfortably and independently - she could not do that a few days ago further, she has needed very little IV dilaudid in the last 72 hours pain on pain scale slowly coming down although she is still not at a level that would allow safe d/c home (reports 05/20 today) appreciate pain management and ortho spine consults with recs plan - cont nucynta ER - 50 mg in AM and 100 mg in PM - will discharge on this dose, follow up in pain clinic cont nucynta IR 75 mg PRN cont baclofen - 5mg TID -- she reports this works well for her d/c tylenol - she has been refusing it lidoderms - continue treated with 5d course of dexamethasone, completed K-pad heat cont PT, OT TLSO brace when walking home health PT 09/27 - -nucynta not available at her pharmacy till mid next week, found another relatively local, resent rx, spoke with her daughter an RN and updated, family not ready with equipment until tomorrow, plan for discharge in AM (2) Hypercalcemia: Plan: mild, asymptomatic treated with IV NS hydration as well as holding vit D supplement persists 09/26 mild elevation - not going up, not on IVF last 48h suspect 2nd to immobility in the setting of her multiple compression fractures she is on no meds that would cause hypercalcemia phos and iPTH both wnl 25-Oh vit D level 76.5 this admission, stopped vit D repeat BMP in 2-4 weeks once mobility improved (3) Lumbar disc herniation: Plan: seen on MRI l-spine - bilateral - R L4 and L L2 roots affected see #1 above could consider gabapentin for pain but defer for now likely explains parasthesia episode 09/25 (4) History of breast cancer: Plan: noted s/p lumpectomy R chronic R arm lymphedema from such no metastatic bony disease on bone scan (5) Microscopic hematuria: Plan: UA done for dysuria - reviewed - no evidence of UTI, microscopic hematuria persists. Reviewed past Urology notes and discussed with patient, chronic problem, had CT imaging over summer 2020 no stones etc. -follow up with Dr. Bueno as per routine interval (6) Systemic lupus erythematosus: Plan: followed by out of town rheumatology not on any chronic meds for such at this time (7) Exposure to COVID-19 virus: Plan: 2 hour exposure to her father who tested + the AM of 09/20/23 patient placed in single room on 09/20/23 COVID test negative on 09/20, negative 09/25 remains asx (8) Trochanteric bursitis of left hip: Plan: suspected +/- IT band pain improved with steroids Plan dvt proph - lovenox 40mg daily bowel regimen - cont miralax BID dosing; cont senna cont PT/OT as tolerated Admission and Anticipated Discharge Date Admission Date: September 19, 2023 Subjective rough night because didn't sleep well, not because of increased pain. more sore today. not too groggy on current dose meds for back pain. Physical Exam Physical Exam: PHYSICAL EXAMINATION Last 24h vital signs reviewed, see documentation in flowsheet General: comfortable appearing, no distress, sitting in bed HEENT: Normocephalic, atraumatic, pupils round and equal, sclerae anicteric, no conjunctival injection, moist mucus membranes Lungs: Normal respiratory effort, CTAB ant Heart: reg no mrg Abdomen: Soft, nondistended. Extremities: Warm, dry, well-perfused. No extremity edema. Neuro: Alert and oriented x 4, face symmetric, moves 4 extremities well. LE with sensation intact to LT bilaterally, strength 5/5 distally - unchanged 09/27, 2+ DP pulses Psych: Normal affect and behavior Results & Data Results & Data Vital Signs (Past 12 Hours) Vital Signs Temp Pulse Resp BP Pulse Ox O2 Del Method 09/27/23 15:41 36.7 C 67 16 100/60 95 Room Air 09/27/23 08:25 36.5 C 58 L 16 112/57 L 96 Room Air PG Care Time/CCT Total # of Minutes Spent Total Time Spent with Patient: 35 minutes spent on clinical care today, discussion with patient, daughter, arranging follow up and discharge medications Coding Level of Care Code 21795 SUB INP/OBS CARE 2/35MIN Diagnoses Compression fracture of lumbar vertebra, unspecified lumbar vertebral level, initial encounter S32.000A Encounter type: initial encounter Lumbar vertebra fracture level: unspecified lumbar vertebra Hypercalcemia E83.52 Lumbar disc herniation M51.26 History of breast cancer Z85.3 Microscopic hematuria R31.29 Other systemic lupus erythematosus with other organ involvement M32.19 Systemic lupus erythematosus type: other Systemic lupus erythematosus organ involvement: other Exposure to COVID-19 virus Z20.822 Trochanteric bursitis of left hip M70.62 (1) Lumbar compression fracture Encounter type: initial encounter Lumbar vertebra fracture level: unspecified lumbar vertebra Qualified Code(s): S32.000A - Wedge compression fracture of unspecified lumbar vertebra, initial encounter for closed fracture (6) Systemic lupus erythematosus Systemic lupus erythematosus type: other Systemic lupus erythematosus organ involvement: other Qualified Code(s): M32.19 - Other organ or system involvement in systemic lupus erythematosus
[2023-09-28] MEDS: TAPENTADOL HCL 50 MG TAB PO PRN (02:55)
[2023-09-28] MEDS: DICLOFENAC SOD 1% GEL 100 GM TUBE EXT SCH (08:48)
[2023-09-28] MEDS: TAPENTADOL HCL ER 50 MG TABCR PO SCH (08:48)
[2023-09-28] MEDS: BACLOFEN 10 MG TAB PO SCH (08:49)
[2023-09-28] MEDS: ASPIRIN 81 MG ECTAB PO SCH (08:49)
[2023-09-28] MEDS: ESCITALOPRAM OXALATE 10 MG TAB PO SCH (08:49)
[2023-09-28] MEDS: LIDOCAINE 5% 1 PATCH TD SCH (08:49)
[2023-09-28] MEDS: ENOXAPARIN INJ 40 MG/0.4 ML SYR SQ SCH (08:49)
[2023-09-28] MEDS: LETROZOLE 2.5 MG TAB PO SCH (08:49)
[2023-09-28] MEDS: SENNA 8.6 MG TAB PO SCH (08:50)
[2023-09-28] MEDS: POLYETHYLENE (MIRALAX) 17 GM PACK PO SCH (08:50)
--- NOTE | 2023-09-28 17:51 | Discharge Summary ---
Date of Service September 28, 2023 Admission HPI Per Admitting Provider Pt is a 58 yo female with PMH of breast cancer (dx 2015, s/p right lumpectomy, chemo, and radiation) with subsequent right UE lymphedema presenting to the ED d/t progressively worsening back pain. Pt states that she was given the diagnosis of one compression fracture back on September [address] Almaraz's office. She was given a short course of steroids to help with the pain- this did help while she was taking them but after the course ended her pain rebounded and was even worse. Over the last week, she notes that the pain has become so bad that she has difficulty walking. Her pain is mostly central over her lower back with radiation to bilateral hips. She denies numbness/tingling and pain that radiates down into her legs. She denies saddle paresthesias and loss of bowel/bladder control. Pt notes that she was on prolia for years until she was told she could no longer be on it (total of 3 years). She tried a bisphosphonate prior to this but had significant GI upset. She has a hx of osteopenia. Her last injection was ~1 yr ago. In the ER, pt received 12 mg morphine, 0.5 mg dilaudid, and 10 mg dexamethasone. Pt's lab work significant for no leukocytosis, Hgb 13.4, no electrolyte abnormalities, Cr 0.78, alk phos 146. Her UA showed 2+ blood w/o signs of infection. Pt follows with urology for nephrolithiasis and hematuria. Lumbar MRI showed compression fx of T12-L5 and disc protrusions on the right at L3-L4, disc protrusions on the left at L1-L2. No central canal narrowing noted. Principal Diagnosis Acute on chronic back pain due to multiple lumbar compression fractures Discharge Exam PHYSICAL EXAMINATION Last 24h vital signs reviewed, see documentation in flowsheet General: comfortable appearing, no distress, lying in bed HEENT: Normocephalic, atraumatic, pupils round and equal, sclerae anicteric, no conjunctival injection, moist mucus membranes Lungs: Normal respiratory effort Heart: reg no mrg Abdomen: Soft, nondistended. Extremities: Warm, dry, well-perfused. No extremity edema. Neuro: Alert and oriented x 4, face symmetric, moves 4 extremities well. Psych: Normal affect and behavior Discharge Data Allergies Allergy/AdvReac Type Severity Reaction Status Date / Time codeine Allergy Hives Unverified 04/25/22 14:33 Sulfa (Sulfonamide AdvReac Headache Unverified 04/25/22 14:33 Antibiotics) Consultations 09/17/23 13:02 ED Decision to Admit Stat 09/17/23 13:58 Consult Orthopedic Spine Surgery Stat 09/17/23 21:18 Consult Pain Management Routine 09/23/23 11:55 Burn CD for patient Routine Ordered Studies 09/17/23 10:06 MR lumbar spine wo/w con Stat Lumbar Spine MRI 09/17/23 10:06 LUMBAR SPINE MRI WITH AND WITHOUT CONTRAST HISTORY: lumbar pain, comp fx, hx of breast CA TECHNIQUE: Multiplanar multisequence MRI of the lumbar spine was performed both before and after the intravenous administration of contrast. COMPARISON: Abdomen and pelvis CT 04/26/2020. FINDINGS: For the purpose of the report the L5-S1 disc space will be located on axial image 27 of 30. Mild endplate edema throughout the lumbar spine and the T12 vertebral body. There are mild superior endplate compression fractures from L1 through L5 demonstrating up to 15% loss of height at the L3 level. No significant retropulsion. Therefore, these are consistent with subacute compression fractures. There is also mild subacute superior and inferior endplate compression fractures at T12 demonstrating up to 10% loss of height. The visualized sacrum is intact. No subluxation. Mild disc space narrowing at L1-L2 and L3-L4. The remaining disc spaces are preserved. The conus terminates at the L1-L2 disc space level. Minimal paravertebral edema at the T12-L1 level. No fractures within the posterior elements. No epidural fluid collections identified. Endplate enhancement within T12 and throughout the lumbar spine likely corresponds to the subacute fractures. Partially visualized 7 mm T2 hyperintense nonenhancing lesion within the right kidney. This favors a cyst. L1-L2: Small broad-based posterior disc osteophyte complex with a 3 mm left pa racentral/foraminal focal disc protrusion. This disc protrusion slightly displaces the transiting left L3 nerve roots. However, no significant central canal or neural foraminal narrowing. L2-L3: Small broad-based posterior disc bulge without significant central canal or neural foraminal narrowing. L3-L4: There is a broad-based posterior disc bulge with a 5 mm right paracentral focal disc protrusion. This abuts and displaces the transiting right L4 nerve roots and results in moderate narrowing of the right lateral recess. However, no significant central canal narrowing. L4-L5: Small broad-based posterior disc bulge without significant central canal or neural foraminal narrowing. L5-S1: No significant central canal or neural foraminal narrowing. IMPRESSION: 1. Mild endplate compression fractures from T12 through L5 as described above. These are likely subacute. No significant retropulsion. 2. There is a 5 mm right paracentral focal disc protrusion at L3-L4 which abuts and displaces the transiting right L4 nerve roots. 3. There is a 3 mm left paracentral focal disc protrusion at L1-L2 with slightly displaces the transiting left L2 nerve roots. 4. No significant central canal narrowing. ACT 112: Negative or not required by law. Electronically signed by: Danny Jack M.D. 09/17/2023 12:40 PM Bone Scan Nuclear Medicine 09/18/23 14:21 NM bone scan whole body HISTORY: 58 years-old Female Hx breast cancer, vertebral compression fracture COMPARISON: Lumbar spine MRI 09/17/2023 TECHNIQUE: Anterior and posterior whole body planar scintigraphic bone scan images were obtained following the intravenous administration of 26.0 mCi technetium 99 MDP administered via the left upper cavity. FINDINGS: Physiologic tracer activity within the kidneys, urinary bladder and soft tissues. Mild multifocal degenerative uptake noted throughout the appendicular skeletal system. Increased tracer uptake at T12-L5 is noted, most pronounced at the L1 and L5 levels. No suspicious tracer uptake identified. IMPRESSION: 1. Increased tracer uptake related to the subacute appearing T12-L5 compression deformities described on yesterday's MRI lumbar spine. 2. No definite scintigraphic evidence of skeletal metastasis. ACT 112: Negative or not required by law. The above report was generated using voice recognition software. It may contain grammatical, syntax or spelling errors. Electronically signed by: Live Adhikari M.D. 09/18/2023 11:16 AM Hospital Course (1) Lumbar compression fracture: Acute on chronic severe back pain, found to have T12 thru L5 compression fractures bone scan and MRI l-spine NEGATIVE for findings suggestive of bony mets from tammie ast ca treated with 5d course of dexamethasone, completed pain management and ortho spine consulted this admission ortho spine recommended wearing TLSO when standing and ambulating for comfort, no lifting follow up in clinic pain management recommended the regimen below which was successful in helping her off parenteral opioids pain remains severe although she is making steady progress now able to ambulate and transfer more comfortably and independently - she could not do that on admission plan - cont nucynta ER - 50 mg in AM and 100 mg in PM - will discharge on this dose, follow up in primary care and I am requesting appointment in pain clinic cont nucynta IR 75 mg PRN - using infrequently more or less once every 24h cont baclofen - 5mg TID -- she reports this works well for her acetaminophen PRN will follow up in primary care, treatment for osteoporosis. vitamin D held for mild hypercalcemia as below home health PT, was able to return home with family (2) Hypercalcemia: mild, asymptomatic treated with IV NS hydration as well as holding vit D supplement persists 09/26 mild elevation - not going up, not on IVF last 48h suspect 2nd to immobility in the setting of her multiple compression fractures she is on no meds that would cause hypercalcemia phos and iPTH both wnl 25-Oh vit D level 76.5 this admission, stopped vit D repeat BMP in 2-4 weeks, further workup if persisting once fractures healing and mobility improved (3) Lumbar disc herniation: seen on MRI l-spine - bilateral - R L4 and L L2 roots affected see #1 above could consider gabapentin for pain but defer for now likely explains parasthesia episode 09/25 which was transient and resolved. she has no leg weakness (4) History of breast cancer: noted s/p lumpectomy R chronic R arm lymphedema from such no metastatic bony disease on bone scan (5) Microscopic hematuria: UA done for dysuria - reviewed - no evidence of UTI, microscopic hematuria persists. Reviewed past Urology notes and discussed with patient, chronic problem, had CT imaging over summer 2020 no stones etc. -follow up with Dr. Bueno as per routine interval (6) Systemic lupus erythematosus: followed by out of town rheumatology not on any chronic meds for such at this time (7) Exposure to COVID-19 virus: 2 hour exposure to her father who tested + the AM of 09/20/23 patient placed in single room on 09/20/23 COVID test negative on 09/20, negative 09/25 remains asx (8) Trochanteric bursitis of left hip: suspected +/- IT band pain improved with steroids Plan Total Time Total Time Spent Total Time Spent (In Minutes): 25 minutes Discharge Plan Discharge Items Patient Disposition: Home - Home Health Services Reason For Visit: MULTIPLE COMPRESSION FRACTURES Discharge Diagnosis: multiple spinal compression fractures Activity: Per Instructions section Activity Comment: wear TLSO brace for comfort when standing and walking Lifting: No more than 5 pounds Lifting Comment: no lifting >5 pounds Non-emergency contact: Primary Care Provider Call non-emergency contact if: you have any medication questions and your pain is not controlled Follow-up/Referrals: Lincoln Gonzáles MD [Family Provider] - Lincoln Neely M.D. [Primary Care Provider] - Diet: Regular Addtl Attending Provider Instructions: Dear Mrs Arroyo, Deep were treated for multiple spinal compression fractures. Ortho spine service consulted and recommended wearing TLSO brace when walking and standing for comfort. No lifting greater than 5 pounds. Follow up with ortho spine clinic as scheduled Pain service consulted and assisted with acute pain control. -do not operate motor vehicles while taking pain medications like nucynta that can cause drowsiness -I sent a prescription for naloxone - keep this on hand at home in case of overdose -make sure this medication is locked up so that no one else can have access to it (especially children, for example) Your blood calcium level has been mildly elevated (around 10.5). This is probably related to fractures and immobility. -stop taking vitamin D supplement for now -have your primary care doctor recheck your blood calcium level in about a month when your mobility is improved -if it remains elevated further testing may be indicated Home health PT was ordered It has been a pleasure taking care of you in the hospital Pending Studies at Discharge: No Stand-Alone Forms: [facility] [place] Drink, Pain - Opioid Pain Management, Smoking Cessation Medications and DC Order Prescriptions: New baclofen 10 mg Tablet 5 mg PO TID PRN (Reason: muscle spasm) Qty: 30 0RF diclofenac sodium [Voltaren Arthritis Pain] 1 % Gel 4 g EXT QID PRN (Reason: pain) Qty: 100 0RF Rx Instructions: may buy over the counter polyethylene glycol 3350 [Miralax] 17 gram Powder In Packet 17 g PO BID Qty: 0 0RF Rx Instructions: miralax - buy over the counter sennosides [Senokot] 8.6 mg Tablet 8.6 - 17.2 mg PO DAILY PRN (Reason: constipation) Qty: 60 0RF lidocaine 5 % Adhesive Patch,Medicated 1 patch transdermal QAM PRN (Reason: pain) Qty: 15 0RF Rx Instructions: may buy over the counter - 4% lidocaine patch naloxone 4 mg/actuation spray,non-aerosol 1 spray intranasal .prn Qty: 2 0RF tapentadol 50 mg tablet 50 - 75 mg PO Q6H PRN (Reason: pain) Qty: 20 0RF tapentadol 50 mg tablet extended release 12 hr See Rx Instructions .ROUTE .COMPLEX Qty: 42 0RF Rx Instructions: 1 tab by mouth in AM and 2 tabs by mouth at bedtime Continued aspirin 81 mg Tablet,Delayed Release (Dr/Ec) 81 mg PO DAILY letrozole 2.5 mg tablet 2.5 mg PO DAILY ibuprofen 800 mg tablet 800 mg PO TID PRN (Reason: pain) Qty: 14 0RF Rx Instructions: tid prn pain, take with food acetaminophen 500 mg Tablet 1,000 mg PO DAILY PRN (Reason: Pain) albuterol sulfate 90 mcg/actuation HFA aerosol inhaler 2 puff INHALATION Q6H PRN (Reason: Wheezing) escitalopram oxalate 10 mg tablet 10 mg PO DAILY Discontinued cholecalciferol (vitamin D3) [Vitamin D3] 25 mcg (1,000 unit) Tablet 1,000 unit PO DAILY Paxlovid 300 mg (150 mg x 2)-100 mg tablets,dose pack See Rx Instructions PO .COMPLEX Qty: 30 0RF Rx Instructions: take TWO 150 mg tablets of nirmatrelvir with ONE 100 mg tablet of ritonavir twice daily for 5 days Discharge Orders: Discharge Order (Routine); Ordered 09/28/23 Ordered By: Yvrose Layton/Other Patient Handouts: Compression Fx Admission Data Admit Date/Time: 09/19/23 14:59 Attending Provider: Yvrose Mckinney Admit Provider: Taj Rey Primary Care Provider: Lincoln Neely Other Providers: Alhaji Durham; Higinio Almaraz; Lorne Tam Other Interventions: Discharge Summary Assessment (RN) Last Done: 09/28/23 10:03 Coding Level of Care Code 74473 IN/OBS DISCH 30 MIN/LESS Diagnoses Compression fracture of lumbar vertebra, unspecified lumbar vertebral level, initial encounter S32.000A Encounter type: initial encounter Lumbar vertebra fracture level: unspecified lumbar vertebra Hypercalcemia E83.52 Lumbar disc herniation M51.26 History of breast cancer Z85.3 Microscopic hematuria R31.29 Other systemic lupus erythematosus with other organ involvement M32.19 Systemic lupus erythematosus type: other Systemic lupus erythematosus organ involvement: other Exposure to COVID-19 virus Z20.822 Trochanteric bursitis of left hip M70.62
== END 2023-09-28 11:21 | disposition home health service (06) | DRG 544 ==
LOC: EDINP 09:36 → ED 09:36 → SUATTDRO 13:55 → 3N 16:33 → SUATTDRO 09-19 14:59 → 3N 09-20 13:12